=== PATIENT | female | born 1945 | race African-American/Black ===

== ENCOUNTER 2017-08-31 18:07 | Inpatient (IN) ==
[2017-08-31] MEDS ORDERED: SODIUM CHLORIDE 0.9% 1,000 ML IV STA (19:14)
[2017-08-31 20:13] LABS: Basophils # 0.1 10*3/uL (0.0-0.2); Basophils % 0.4 % (0.0-0.8); Eosinophils # 0.1 10*3/uL (0.0-0.87); Hematocrit 30.2 VOL% (35.7-47.0); Hemoglobin 9.1 GM/DL (12.0-16.0); Immature Granulocytes % 0.6 %; Immature Granulocytes Absolute 0.07 #; Lymphocytes % 16.2 % (21.3-54.2); Mean Corpuscular HGB Conc 30.1 GM/DL (32-36); Mean Corpuscular Hemoglobin 25 PG (27-34); Mean Corpuscular Volume 84.1 FL (87-102); Mean Platelet Volume 10.1 FL (9.6-12.0); Monocytes # 1.1 10*3/uL (0.11-0.8); Monocytes % 8.5 % (1.7-12.7); Neutrophils # 9.2 10*3/uL (1.4-7.4); Neutrophils % 73.3 % (38.7-73.9); Platelet Count 323 T/CUMM (130-400); Red Blood Count 3.59 MC/CUMM (3.8-5.5); Red Cell Distribution Width 16.9 % (9.3-17.3); White Blood Count 12.6 T/CUMM (4-12)
[2017-08-31 20:18] LABS: PT Patient Result 10.6 SECS
[2017-08-31 20:21] LABS: Apearance,Urine Slightly Hazy (Clear); Bilirubin,Urine Negative (Negative); Blood, Urine Negative (Negative); Glucose,Urine (UA) Negative (Negative); Hyaline Casts,Urine 14 /LPF (0-3); Ketones,Urine Negative (Negative); Mucus,Urine Occasional /LPF (Occasional); Nitrite,Urine Negative (Negative); Protein,Urine Negative; RBC,Urine <1 /HPF (0-4); Squamous Epithelial Cell,Urine Occasional /HPF (0-10); Urine Color Yellow (Yellow); Urine Specific Gravity 1.013 (1.001-1.035); WBC,Urine 4 /HPF (0-6)
[2017-08-31 20:30] LABS: Ammonia 24 UMOL/L (11-32)
[2017-08-31 20:43] LABS: Alanine Aminotransferase 13 U/L (13-56); Albumin 2.5 G/DL (3.4-5.0); Alkaline Phosphatase 98 U/L (45-117); Aspartate Amino Transferase 11 U/L (0-37); Blood Urea Nitrogen 47 MG/DL (7-18); Calcium 8.2 MG/DL (8.5-10.1); Glucose 96 MG/DL (74-106); Magnesium 2.3 MG/DL (1.8-2.4); Osmolality,Calculated 286.7 MOS/KG (273-304); Potassium 3.3 MMOL/L (3.5-5.1); Sodium 138 MMOL/L (136-145); Total Protein 7.1 G/DL (6.4-8.3); Troponin I Only < 0.015 NG/ML (0.00-0.045)
[2017-08-31] MEDS ORDERED: ACETAMINOPHEN 325 MG TABLET PO PRN (22:22)
[2017-08-31] MEDS ORDERED: ONDANSETRON 4 MG/2 ML VIAL IV PRN (22:22)
[2017-09-01] MEDS ORDERED: SODIUM CHLOR 0.9% KCL 20 MEQ 20 MEQ/1,000 ML BAG IV ONE (00:07)
[2017-09-01] MEDS: ENOXAPARIN 30 MG/0.3 ML SYRINGE SUBCUT SCH ×2 (00:25→23:20)
[2017-09-01] MEDS: POTASSIUM CHLORIDE INJ 20 MEQ in SODIUM CHLORIDE 0.9% 1,000 ML IV SCH (00:25)
[2017-09-01 07:05] LABS: Basophils # 0.1 10*3/uL (0.0-0.2); Basophils % 0.7 % (0.0-0.8); Eosinophils # 0.2 10*3/uL (0.0-0.87); Eosinophils % 1.5 % (0.00-10.9); Hematocrit 26.8 VOL% (35.7-47.0); Hemoglobin 8.2 GM/DL (12.0-16.0); Immature Granulocytes % 0.3 %; Immature Granulocytes Absolute 0.03 #; Lymphocytes # 2.6 10*3/uL (1.4-4.0); Lymphocytes % 24.8 % (21.3-54.2); Mean Corpuscular HGB Conc 30.6 GM/DL (32-36); Mean Corpuscular Hemoglobin 26 PG (27-34); Mean Platelet Volume 10.1 FL (9.6-12.0); Monocytes # 0.9 10*3/uL (0.11-0.8); Monocytes % 8.6 % (1.7-12.7); Neutrophils # 6.6 10*3/uL (1.4-7.4); Neutrophils % 64.1 % (38.7-73.9); Platelet Count 272 T/CUMM (130-400); Red Blood Count 3.19 MC/CUMM (3.8-5.5); Red Cell Distribution Width 16.8 % (9.3-17.3); White Blood Count 10.4 T/CUMM (4-12)
[2017-09-01 07:44] LABS: Albumin 2.2 G/DL (3.4-5.0); Bilirubin,Total 0.4 MG/DL (0.2-1.0); Calcium 7.6 MG/DL (8.5-10.1); Potassium 3.9 MMOL/L (3.5-5.1); Total Protein 5.5 G/DL (6.4-8.3)
[2017-09-01] MEDS ORDERED: LISINOPRIL 10 MG TABLET PO SCH (09:00)
[2017-09-01] MEDS: TRIAMTERENE/HCTZ 37.5-25 MG CAPSULE PO SCH (09:51)
[2017-09-01] MEDS: MULTIVITAMIN (CENTRUM) TABLET PO SCH (09:51)
[2017-09-01] MEDS: clonazePAM 0.5 MG TABLET PO SCH ×2 (09:52→20:59)
[2017-09-01] MEDS: SERTRALINE 100 MG TABLET PO SCH (09:52)
[2017-09-01] MEDS: amLODIPine 5 MG TABLET PO SCH (09:52)
[2017-09-01] MEDS: METOPROLOL TARTRATE 25 MG TABLET PO SCH (09:52)
[2017-09-01] MEDS: PANTOPRAZOLE 40 MG TABLET PO SCH (09:52)
[2017-09-01] MEDS: risperiDONE 3 MG TABLET PO SCH ×2 (10:20→20:59)
[2017-09-01] MEDS: SODIUM CHLOR 0.9% KCL 20 MEQ 20 MEQ/1,000 ML BAG IV SCH ×2 (10:58→20:59)
[2017-09-01] MEDS: DONEPEZIL 10 MG TABLET PO SCH (20:59)
[2017-09-02] MEDS: SODIUM CHLOR 0.9% KCL 20 MEQ 20 MEQ/1,000 ML BAG IV SCH ×5 (00:57→21:07)
[2017-09-02 06:31] LABS: Basophils # 0.1 10*3/uL (0.0-0.2); Basophils % 0.6 % (0.0-0.8); Eosinophils # 0.2 10*3/uL (0.0-0.87); Eosinophils % 2.2 % (0.00-10.9); Hematocrit 26.9 VOL% (35.7-47.0); Hemoglobin 8.3 GM/DL (12.0-16.0); Immature Granulocytes % 0.6 %; Immature Granulocytes Absolute 0.05 #; Lymphocytes # 2.3 10*3/uL (1.4-4.0); Lymphocytes % 25.7 % (21.3-54.2); Mean Corpuscular HGB Conc 30.9 GM/DL (32-36); Mean Corpuscular Hemoglobin 26 PG (27-34); Mean Corpuscular Volume 83.3 FL (87-102); Mean Platelet Volume 10.2 FL (9.6-12.0); Monocytes # 0.7 10*3/uL (0.11-0.8); Monocytes % 8.2 % (1.7-12.7); Neutrophils # 5.5 10*3/uL (1.4-7.4); Neutrophils % 62.7 % (38.7-73.9); Platelet Count 289 T/CUMM (130-400); Red Blood Count 3.23 MC/CUMM (3.8-5.5); Red Cell Distribution Width 16.7 % (9.3-17.3); White Blood Count 8.8 T/CUMM (4-12)
[2017-09-02 06:57] LABS: Calcium 7.8 MG/DL (8.5-10.1); Osmolality,Calculated 287.8 MOS/KG (273-304); Potassium 4.5 MMOL/L (3.5-5.1)
[2017-09-02 07:21] LABS: 25 Hydroxy Vitamin D Total 27.8 NG/ML
[2017-09-02] MEDS: amLODIPine 5 MG TABLET PO SCH (09:32)
[2017-09-02] MEDS: PANTOPRAZOLE 40 MG TABLET PO SCH (09:32)
[2017-09-02] MEDS: TRIAMTERENE/HCTZ 37.5-25 MG CAPSULE PO SCH (09:32)
[2017-09-02] MEDS: clonazePAM 0.5 MG TABLET PO SCH ×2 (09:32→20:56)
[2017-09-02] MEDS: MULTIVITAMIN (CENTRUM) TABLET PO SCH (09:32)
[2017-09-02] MEDS: METOPROLOL TARTRATE 25 MG TABLET PO SCH (09:32)
[2017-09-02] MEDS: SERTRALINE 100 MG TABLET PO SCH (09:33)
[2017-09-02] MEDS: risperiDONE 3 MG TABLET PO SCH ×2 (09:33→20:56)
[2017-09-02] MEDS: DONEPEZIL 10 MG TABLET PO SCH (20:56)
[2017-09-02] MEDS: ENOXAPARIN 40 MG/0.4 ML SYRINGE SUBCUT SCH (20:56)
[2017-09-03] MEDS: SODIUM CHLOR 0.9% KCL 20 MEQ 20 MEQ/1,000 ML BAG IV SCH ×3 (03:31→21:47)
[2017-09-03 03:36] LABS: Basophils # 0.1 10*3/uL (0.0-0.2); Basophils % 0.5 % (0.0-0.8); Eosinophils # 0.3 10*3/uL (0.0-0.87); Eosinophils % 2.8 % (0.00-10.9); Hematocrit 27.3 VOL% (35.7-47.0); Hemoglobin 8.5 GM/DL (12.0-16.0); Immature Granulocytes % 0.5 %; Immature Granulocytes Absolute 0.05 #; Lymphocytes # 2.2 10*3/uL (1.4-4.0); Mean Corpuscular HGB Conc 31.1 GM/DL (32-36); Mean Corpuscular Hemoglobin 26 PG (27-34); Mean Corpuscular Volume 82.5 FL (87-102); Mean Platelet Volume 10.8 FL (9.6-12.0); Monocytes # 0.8 10*3/uL (0.11-0.8); Monocytes % 8.5 % (1.7-12.7); Neutrophils # 5.9 10*3/uL (1.4-7.4); Neutrophils % 63.7 % (38.7-73.9); Platelet Count 318 T/CUMM (130-400); Red Blood Count 3.31 MC/CUMM (3.8-5.5); Red Cell Distribution Width 16.9 % (9.3-17.3); White Blood Count 9.2 T/CUMM (4-12)
[2017-09-03 04:14] LABS: Calcium 7.9 MG/DL (8.5-10.1); Magnesium 1.6 MG/DL (1.8-2.4); Osmolality,Calculated 284.8 MOS/KG (273-304); Potassium 4.9 MMOL/L (3.5-5.1)
[2017-09-03] MEDS: PANTOPRAZOLE 40 MG TABLET PO SCH (09:21)
[2017-09-03] MEDS: MULTIVITAMIN (CENTRUM) TABLET PO SCH (09:21)
[2017-09-03] MEDS: TRIAMTERENE/HCTZ 37.5-25 MG CAPSULE PO SCH (09:21)
[2017-09-03] MEDS: clonazePAM 0.5 MG TABLET PO SCH ×2 (09:21→21:46)
[2017-09-03] MEDS: SERTRALINE 100 MG TABLET PO SCH (09:21)
[2017-09-03] MEDS: risperiDONE 3 MG TABLET PO SCH ×2 (09:21→21:46)
[2017-09-03] MEDS: amLODIPine 5 MG TABLET PO SCH (09:22)
[2017-09-03] MEDS: METOPROLOL TARTRATE 25 MG TABLET PO SCH (09:22)
[2017-09-03] MEDS: DONEPEZIL 10 MG TABLET PO SCH (21:46)
[2017-09-03] MEDS: ENOXAPARIN 40 MG/0.4 ML SYRINGE SUBCUT SCH (21:46)
[2017-09-04] MEDS: SODIUM CHLOR 0.9% KCL 20 MEQ 20 MEQ/1,000 ML BAG IV SCH (08:03)
[2017-09-04] MEDS: clonazePAM 0.5 MG TABLET PO SCH ×2 (08:41→21:20)
[2017-09-04] MEDS: METOPROLOL TARTRATE 25 MG TABLET PO SCH (08:41)
[2017-09-04] MEDS: PANTOPRAZOLE 40 MG TABLET PO SCH (08:41)
[2017-09-04] MEDS: MULTIVITAMIN (CENTRUM) TABLET PO SCH (08:41)
[2017-09-04] MEDS: SERTRALINE 100 MG TABLET PO SCH (08:41)
[2017-09-04] MEDS: risperiDONE 3 MG TABLET PO SCH ×2 (08:41→21:20)
[2017-09-04] MEDS: TRIAMTERENE/HCTZ 37.5-25 MG CAPSULE PO SCH (08:41)
[2017-09-04] MEDS: amLODIPine 5 MG TABLET PO SCH (08:41)
[2017-09-04] MEDS: POTASSIUM CHLORIDE INJ 20 MEQ in SODIUM CHLORIDE 0.9% 1,000 ML IV SCH (08:43)
[2017-09-04] MEDS: MAGNESIUM OXIDE 400 MG TABLET PO SCH ×2 (10:33→21:20)
[2017-09-04] MEDS: SODIUM CHLORIDE 0.45% 1,000 ML IV SCH ×2 (10:34→21:21)
[2017-09-04] MEDS: DONEPEZIL 10 MG TABLET PO SCH (21:20)
[2017-09-04] MEDS: MELATONIN 3 MG TABLET PO PRN (21:20)
[2017-09-04] MEDS: ENOXAPARIN 40 MG/0.4 ML SYRINGE SUBCUT SCH (21:20)
[2017-09-05 04:54] LABS: Calcium 8.4 MG/DL (8.5-10.1); Magnesium 1.4 MG/DL (1.8-2.4); Potassium 4.7 MMOL/L (3.5-5.1)
[2017-09-05] MEDS: amLODIPine 5 MG TABLET PO SCH (08:39)
[2017-09-05] MEDS: risperiDONE 3 MG TABLET PO SCH ×2 (08:39→22:01)
[2017-09-05] MEDS: MAGNESIUM OXIDE 400 MG TABLET PO SCH ×2 (08:39→22:01)
[2017-09-05] MEDS: SERTRALINE 100 MG TABLET PO SCH (08:39)
[2017-09-05] MEDS: METOPROLOL TARTRATE 25 MG TABLET PO SCH (08:39)
[2017-09-05] MEDS: PANTOPRAZOLE 40 MG TABLET PO SCH (08:39)
[2017-09-05] MEDS: clonazePAM 0.5 MG TABLET PO SCH ×2 (08:39→22:01)
[2017-09-05] MEDS: MULTIVITAMIN (CENTRUM) TABLET PO SCH (08:39)
[2017-09-05] MEDS: TRIAMTERENE/HCTZ 37.5-25 MG CAPSULE PO SCH (08:39)
[2017-09-05] MEDS: DONEPEZIL 10 MG TABLET PO SCH (22:01)
[2017-09-05] MEDS: MELATONIN 3 MG TABLET PO PRN (22:01)
[2017-09-05] MEDS: ENOXAPARIN 40 MG/0.4 ML SYRINGE SUBCUT SCH (22:02)
[2017-09-06] MEDS: clonazePAM 0.5 MG TABLET PO SCH ×2 (11:01→22:53)
[2017-09-06] MEDS: amLODIPine 5 MG TABLET PO SCH (11:01)
[2017-09-06] MEDS: TRIAMTERENE/HCTZ 37.5-25 MG CAPSULE PO SCH (11:01)
[2017-09-06] MEDS: METOPROLOL TARTRATE 25 MG TABLET PO SCH (11:01)
[2017-09-06] MEDS: risperiDONE 3 MG TABLET PO SCH ×2 (11:05→22:53)
[2017-09-06] MEDS: MULTIVITAMIN (CENTRUM) TABLET PO SCH (11:06)
[2017-09-06] MEDS: PANTOPRAZOLE 40 MG TABLET PO SCH (11:07)
[2017-09-06] MEDS: SERTRALINE 100 MG TABLET PO SCH (11:08)
[2017-09-06] MEDS: MAGNESIUM OXIDE 400 MG TABLET PO SCH ×2 (11:08→22:53)
[2017-09-06] MEDS: MELATONIN 3 MG TABLET PO PRN (22:53)
[2017-09-06] MEDS: DONEPEZIL 10 MG TABLET PO SCH (22:53)
[2017-09-06] MEDS: ENOXAPARIN 40 MG/0.4 ML SYRINGE SUBCUT SCH (22:54)
[2017-09-07 07:02] LABS: Basophils # 0.1 10*3/uL (0.0-0.2); Basophils % 0.6 % (0.0-0.8); Eosinophils # 0.2 10*3/uL (0.0-0.87); Eosinophils % 2.5 % (0.00-10.9); Hematocrit 28.1 VOL% (35.7-47.0); Hemoglobin 8.6 GM/DL (12.0-16.0); Immature Granulocytes % 0.8 %; Immature Granulocytes Absolute 0.08 #; Lymphocytes # 2.6 10*3/uL (1.4-4.0); Lymphocytes % 26.9 % (21.3-54.2); Mean Corpuscular HGB Conc 30.6 GM/DL (32-36); Mean Corpuscular Hemoglobin 25 PG (27-34); Mean Corpuscular Volume 82.9 FL (87-102); Mean Platelet Volume 9.7 FL (9.6-12.0); Monocytes # 0.9 10*3/uL (0.11-0.8); Monocytes % 8.9 % (1.7-12.7); Neutrophils # 5.8 10*3/uL (1.4-7.4); Neutrophils % 60.3 % (38.7-73.9); Platelet Count 306 T/CUMM (130-400); Red Blood Count 3.39 MC/CUMM (3.8-5.5); Red Cell Distribution Width 17.5 % (9.3-17.3); White Blood Count 9.7 T/CUMM (4-12)
[2017-09-07 07:39] LABS: Calcium 8.7 MG/DL (8.5-10.1); Osmolality,Calculated 281.1 MOS/KG (273-304); Potassium 4.3 MMOL/L (3.5-5.1)
[2017-09-07] MEDS: MULTIVITAMIN (CENTRUM) TABLET PO SCH (10:13)
[2017-09-07] MEDS: clonazePAM 0.5 MG TABLET PO SCH ×2 (10:13→21:21)
[2017-09-07] MEDS: SERTRALINE 100 MG TABLET PO SCH (10:13)
[2017-09-07] MEDS: PANTOPRAZOLE 40 MG TABLET PO SCH (10:13)
[2017-09-07] MEDS: TRIAMTERENE/HCTZ 37.5-25 MG CAPSULE PO SCH (10:13)
[2017-09-07] MEDS: MAGNESIUM OXIDE 400 MG TABLET PO SCH ×2 (10:13→21:22)
[2017-09-07] MEDS: amLODIPine 5 MG TABLET PO SCH (10:13)
[2017-09-07] MEDS: risperiDONE 3 MG TABLET PO SCH ×2 (10:13→21:22)
[2017-09-07] MEDS: METOPROLOL TARTRATE 25 MG TABLET PO SCH (10:13)
[2017-09-07] MEDS: DONEPEZIL 10 MG TABLET PO SCH (21:21)
[2017-09-07] MEDS: MELATONIN 3 MG TABLET PO PRN (21:21)
[2017-09-07] MEDS: ENOXAPARIN 40 MG/0.4 ML SYRINGE SUBCUT SCH (21:26)
[2017-09-08] MEDS: MULTIVITAMIN (CENTRUM) TABLET PO SCH (09:43)
[2017-09-08] MEDS: MAGNESIUM OXIDE 400 MG TABLET PO SCH ×2 (09:43→21:14)
[2017-09-08] MEDS: TRIAMTERENE/HCTZ 37.5-25 MG CAPSULE PO SCH (09:43)
[2017-09-08] MEDS: risperiDONE 3 MG TABLET PO SCH ×2 (09:44→21:14)
[2017-09-08] MEDS: PANTOPRAZOLE 40 MG TABLET PO SCH (09:44)
[2017-09-08] MEDS: SERTRALINE 100 MG TABLET PO SCH (09:44)
[2017-09-08] MEDS: METOPROLOL TARTRATE 25 MG TABLET PO SCH (09:44)
[2017-09-08] MEDS: amLODIPine 5 MG TABLET PO SCH (09:44)
[2017-09-08] MEDS: clonazePAM 0.5 MG TABLET PO SCH ×2 (09:44→21:14)
[2017-09-08] MEDS: MELATONIN 3 MG TABLET PO PRN (21:14)
[2017-09-08] MEDS: DONEPEZIL 10 MG TABLET PO SCH (21:14)
[2017-09-08] MEDS: ENOXAPARIN 40 MG/0.4 ML SYRINGE SUBCUT SCH (21:14)
[2017-09-09 05:25] LABS: Basophils # 0.1 10*3/uL (0.0-0.2); Basophils % 0.6 % (0.0-0.8); Eosinophils # 0.2 10*3/uL (0.0-0.87); Eosinophils % 2.4 % (0.00-10.9); Hematocrit 30.1 VOL% (35.7-47.0); Hemoglobin 9.2 GM/DL (12.0-16.0); Immature Granulocytes % 0.8 %; Immature Granulocytes Absolute 0.08 #; Lymphocytes # 2.9 10*3/uL (1.4-4.0); Lymphocytes % 28.8 % (21.3-54.2); Mean Corpuscular HGB Conc 30.6 GM/DL (32-36); Mean Corpuscular Hemoglobin 25 PG (27-34); Mean Corpuscular Volume 82.9 FL (87-102); Mean Platelet Volume 10.4 FL (9.6-12.0); Monocytes # 1.1 10*3/uL (0.11-0.8); Monocytes % 11.2 % (1.7-12.7); Neutrophils # 5.6 10*3/uL (1.4-7.4); Neutrophils % 56.2 % (38.7-73.9); Platelet Count 326 T/CUMM (130-400); Red Blood Count 3.63 MC/CUMM (3.8-5.5); Red Cell Distribution Width 17.4 % (9.3-17.3); White Blood Count 9.9 T/CUMM (4-12)
[2017-09-09 05:52] LABS: Calcium 8.8 MG/DL (8.5-10.1)
[2017-09-09 05:53] LABS: Osmolality,Calculated 278.4 MOS/KG (273-304); Potassium 4.1 MMOL/L (3.5-5.1)
[2017-09-09] MEDS: SERTRALINE 100 MG TABLET PO SCH (09:28)
[2017-09-09] MEDS: PANTOPRAZOLE 40 MG TABLET PO SCH (09:28)
[2017-09-09] MEDS: METOPROLOL TARTRATE 25 MG TABLET PO SCH (09:28)
[2017-09-09] MEDS: MULTIVITAMIN (CENTRUM) TABLET PO SCH (09:28)
[2017-09-09] MEDS: MAGNESIUM OXIDE 400 MG TABLET PO SCH ×2 (09:28→20:55)
[2017-09-09] MEDS: risperiDONE 3 MG TABLET PO SCH ×2 (09:28→20:55)
[2017-09-09] MEDS: TRIAMTERENE/HCTZ 37.5-25 MG CAPSULE PO SCH (09:28)
[2017-09-09] MEDS: amLODIPine 5 MG TABLET PO SCH (09:29)
[2017-09-09] MEDS: clonazePAM 0.5 MG TABLET PO SCH ×2 (09:29→20:55)
[2017-09-09] MEDS ORDERED: ZINC OXIDE PASTE 113 GM TUBE TOP PRN (14:23)
[2017-09-09] MEDS: ENOXAPARIN 40 MG/0.4 ML SYRINGE SUBCUT SCH (20:55)
[2017-09-09] MEDS: DONEPEZIL 10 MG TABLET PO SCH (20:55)
[2017-09-10] MEDS: METOPROLOL TARTRATE 25 MG TABLET PO SCH (09:55)
[2017-09-10] MEDS: PANTOPRAZOLE 40 MG TABLET PO SCH (09:55)
[2017-09-10] MEDS: MAGNESIUM OXIDE 400 MG TABLET PO SCH (09:55)
[2017-09-10] MEDS: clonazePAM 0.5 MG TABLET PO SCH (09:55)
[2017-09-10] MEDS: TRIAMTERENE/HCTZ 37.5-25 MG CAPSULE PO SCH (09:55)
[2017-09-10] MEDS: amLODIPine 5 MG TABLET PO SCH (09:55)
[2017-09-10] MEDS: MULTIVITAMIN (CENTRUM) TABLET PO SCH (09:55)
[2017-09-10] MEDS: risperiDONE 3 MG TABLET PO SCH (09:56)
[2017-09-10] MEDS: SERTRALINE 100 MG TABLET PO SCH (09:56)
[2017-09-10 17:38] VITALS: BP 113/62
== END 2017-09-10 18:55 | disposition home health service (06) | DRG 684 ==
LOC: EDUNIT# → EDBD → N.ED 18:07 → N.EDINP 22:22 → SUATTDRO 22:23 → N.3E 23:55 → N.2E 09-06 21:10
PROVIDERS: ADMIT Internal Medicine; ATTEND Internal Medicine Cardiovascular Disease

== ENCOUNTER 2017-12-05 17:30 | Inpatient (IN) ==
[2017-12-05] MEDS ORDERED: VANCOMYCIN INJ 1,500 MG in SODIUM CHLORIDE 0.9% 500 ML IV STA (18:08)
[2017-12-05] MEDS ORDERED: PIPERACILLIN/TAZOBACTAM 3,375 MG in SODIUM CHLORIDE 0.9% 100 ML IV STA (18:08)
[2017-12-05] MEDS ORDERED: SODIUM CHLORIDE 0.9% 1,000 ML IV STA ×2 (18:26→19:30)
[2017-12-05] MEDS ORDERED: PROPOFOL 1,000 MG/100 ML BOTTLE IV ONE (18:34)
[2017-12-05] MEDS: PROPOFOL 1,000 MG/100 ML BOTTLE IV SCH (18:41)
[2017-12-05] MEDS ORDERED: ROCURONIUM 100 MG/10 ML VIAL IV ONE (18:56)
[2017-12-05] MEDS ORDERED: ETOMIDATE 20 MG/10 ML VIAL IV ONE (18:56)
[2017-12-05] MEDS ORDERED: VANCOMYCIN 1,000 MG VIAL ONE (19:06)
[2017-12-05 19:10] LABS: Basophils % 0.1 % (0.0-0.8); Immature Granulocytes % 0.6 %; Immature Granulocytes Absolute 0.09 #; Lymphocytes # 0.5 10*3/uL (1.4-4.0); Lymphocytes % 3.4 % (21.3-54.2); Mean Corpuscular HGB Conc 31.6 GM/DL (32-36); Mean Corpuscular Hemoglobin 25 PG (27-34); Mean Corpuscular Volume 80.2 FL (87-102); Mean Platelet Volume 10.8 FL (9.6-12.0); Monocytes # 0.9 10*3/uL (0.11-0.8); Monocytes % 5.7 % (1.7-12.7); Neutrophils # 14.2 10*3/uL (1.4-7.4); Neutrophils % 90.2 % (38.7-73.9); Platelet Count 379 T/CUMM (130-400); Red Blood Count 4.74 MC/CUMM (3.8-5.5); Red Cell Distribution Width 14.6 % (9.3-17.3); White Blood Count 15.7 T/CUMM (4-12)
[2017-12-05 19:16] LABS: ABG Base Excess -0.2 MMOL/L (-2.5-2.5); ABG HCO3 24.3 MMOL/L (20-26); ABG Oxygen Saturation 99.6 % (95-100); ABG PCO2 34.4 MM HG (35-48); ABG PH 7.441 (7.35-7.45); ABG TCO2 20.8 MMOL/L (23-27)
[2017-12-05 19:20] LABS: INR 0.9; PT Patient Result 9.8 SECS; Partial Thromboplastin Time 23.8 SECS (0-40)
[2017-12-05 19:21] LABS: Ammonia 34 UMOL/L (11-32)
[2017-12-05 19:26] LABS: Apearance,Urine CLEAR (Clear); Bilirubin,Urine Negative (Negative); Blood, Urine Small mg/dL (Negative); Glucose,Urine (UA) >=500 mg/dL (Negative); Ketones,Urine Negative (Negative); Mucus,Urine Occasional /LPF (Occasional); Nitrite,Urine Negative (Negative); Protein,Urine 100 MG/DL; RBC,Urine <1 /HPF (0-4); Squamous Epithelial Cell,Urine Occasional /HPF (0-10); Urine Color Straw (Yellow); Urine Specific Gravity 1.014 (1.001-1.035); Urine Urobilinogen < 2.0 EU/DL (0.2-1.0); WBC,Urine <1 /HPF (0-6)
[2017-12-05 19:30] LABS: Lymphocytes 5 % (20-55); Segmented Neutrophils 90 % (50-85); Total Cells Counted 100
[2017-12-05 19:31] LABS: Barbiturates Screen,Urine Negative (Negative); Benzodiazepines Screen,Urine Negative (Negative); Cannabinoid Screen,Urine Negative (Negative); Opiate Screen,Urine Negative (Negative); Phencyclidine Screen,Urine Negative (Negative); Platelet Estimate Adequate
[2017-12-05 19:39] LABS: Alanine Aminotransferase 13 U/L (13-56); Albumin 3.2 G/DL (3.4-5.0); Alkaline Phosphatase 121 U/L (45-117); Aspartate Amino Transferase 31 U/L (0-37); Bilirubin,Total < 0.39 MG/DL (0.2-1.0); Blood Urea Nitrogen 14 MG/DL (7-18); Calcium 8.8 MG/DL (8.5-10.1); Glucose 205 MG/DL (74-106); Osmolality,Calculated 274.2 MOS/KG (273-304); Potassium 3.5 MMOL/L (3.5-5.1); Sodium 134 MMOL/L (136-145); Total Protein 8.2 G/DL (6.4-8.3); Troponin I Only < 0.015 NG/ML (0.00-0.045)
[2017-12-05] MEDS ORDERED: ONDANSETRON 4 MG/2 ML VIAL IV PRN (20:29)
[2017-12-05] MEDS ORDERED: ALBUTEROL 2.5 MG/3 ML NEB RESP TX PRN (20:29)
[2017-12-05] MEDS ORDERED: GLUCAGON 1 MG VIAL IM PRN (20:42)
[2017-12-05] MEDS ORDERED: DEXTROSE 50% 25 GM/50 ML VIAL IV PRN (20:42)
[2017-12-05] MEDS ORDERED: LABETALOL 20 MG/4 ML SYRINGE IV PRN (20:44)
[2017-12-05] MEDS ORDERED: LORazepam 2 MG/1 ML VIAL IV PRN (20:48)
[2017-12-05] MEDS ORDERED: PIPERACILLIN/TAZOBACTAM 3,375 MG VIAL IV ONE (21:04)
[2017-12-05] MEDS ORDERED: SODIUM CHLORIDE 0.9% 100 ML IV ONE (21:06)
[2017-12-05] MEDS: ENOXAPARIN 40 MG/0.4 ML SYRINGE SUBCUT SCH (21:40)
[2017-12-05 21:59] LABS: Lactic Acid 5.4 MMOL/L (0.4-2.0)
[2017-12-05] MEDS: PANTOPRAZOLE 40 MG VIAL IV SCH (22:12)
[2017-12-05] MEDS: SODIUM CHLORIDE 0.9% 1,000 ML IV SCH (23:00)
[2017-12-06 01:16] LABS: Lactic Acid 2.9 MMOL/L (0.4-2.0)
[2017-12-06 03:58] LABS: Allen Test Positive; Pt O2 Delivery Device Ventilator
[2017-12-06 03:59] LABS: ABG Base Excess 1.8 MMOL/L (-2.5-2.5); ABG HCO3 25.6 MMOL/L (20-26); ABG Oxygen Saturation 98.8 % (95-100); ABG PCO2 37.4 MM HG (35-48); ABG PH 7.454 (7.35-7.45); ABG PO2 153.9 MM HG (80-95); ABG TCO2 26.8 MMOL/L (23-27)
[2017-12-06] MEDS: PROPOFOL 1,000 MG/100 ML BOTTLE IV SCH ×2 (04:09→17:45)
[2017-12-06] MEDS: DEXTROSE 5% NACL 0.45% 1,000 ML IV SCH ×2 (04:12→15:19)
[2017-12-06 05:19] LABS: Basophils % 0.2 % (0.0-0.8); Hematocrit 35.6 VOL% (35.7-47.0); Hemoglobin 11.1 GM/DL (12.0-16.0); Immature Granulocytes % 0.7 %; Immature Granulocytes Absolute 0.14 #; Lymphocytes # 1.2 10*3/uL (1.4-4.0); Lymphocytes % 6.1 % (21.3-54.2); Mean Corpuscular HGB Conc 31.2 GM/DL (32-36); Mean Corpuscular Hemoglobin 25 PG (27-34); Mean Corpuscular Volume 81.3 FL (87-102); Mean Platelet Volume 10.7 FL (9.6-12.0); Monocytes # 2.3 10*3/uL (0.11-0.8); Monocytes % 11.9 % (1.7-12.7); Neutrophils # 15.7 10*3/uL (1.4-7.4); Neutrophils % 81.1 % (38.7-73.9); Platelet Count 328 T/CUMM (130-400); Red Blood Count 4.38 MC/CUMM (3.8-5.5); Red Cell Distribution Width 14.9 % (9.3-17.3); White Blood Count 19.3 T/CUMM (4-12)
[2017-12-06 05:43] LABS: Lactic Acid 2.8 MMOL/L (0.4-2.0)
[2017-12-06 06:10] LABS: Alanine Aminotransferase 15 U/L (13-56); Albumin 2.8 G/DL (3.4-5.0); Alkaline Phosphatase 98 U/L (45-117); Aspartate Amino Transferase 35 U/L (0-37); Bilirubin,Total < 0.39 MG/DL (0.2-1.0); Blood Urea Nitrogen 13 MG/DL (7-18); Calcium 8.3 MG/DL (8.5-10.1); Glucose 98 MG/DL (74-106); Osmolality,Calculated 274.7 MOS/KG (273-304); Potassium 3.5 MMOL/L (3.5-5.1); Sodium 138 MMOL/L (136-145); Total Protein 6.6 G/DL (6.4-8.3)
[2017-12-06] MEDS: PIPERACILLIN/TAZOBACTAM 3,375 MG in SODIUM CHLORIDE 0.9% 100 ML IV SCH ×3 (06:15→20:38)
[2017-12-06] MEDS: SODIUM CHLORIDE 0.9% 1,000 ML IV SCH (07:06)
[2017-12-06] MEDS: VANCOMYCIN INJ 1,000 MG in SODIUM CHLORIDE 0.9% 250 ML IV SCH ×2 (08:32→20:19)
[2017-12-06] MEDS ORDERED: SKIN HEALING OINT (AQUAPHOR) 50 GM TUBE TOP SCH (11:30)
[2017-12-06] MEDS: ENOXAPARIN 40 MG/0.4 ML SYRINGE SUBCUT SCH (20:19)
[2017-12-06] MEDS: PANTOPRAZOLE 40 MG VIAL IV SCH (20:19)
[2017-12-07] MEDS: DEXTROSE 5% NACL 0.45% 1,000 ML IV SCH ×4 (01:04→22:45)
[2017-12-07 04:14] LABS: ABG Base Excess -0.3 MMOL/L (-2.5-2.5); ABG HCO3 24.2 MMOL/L (20-26); ABG Oxygen Saturation 99.6 % (95-100); ABG PCO2 35.9 MM HG (35-48); ABG PH 7.429 (7.35-7.45); ABG TCO2 21.7 MMOL/L (23-27)
[2017-12-07] MEDS: PIPERACILLIN/TAZOBACTAM 3,375 MG in SODIUM CHLORIDE 0.9% 100 ML IV SCH ×3 (04:30→20:54)
[2017-12-07 08:06] LABS: Basophils # 0.1 10*3/uL (0.0-0.2); Basophils % 0.2 % (0.0-0.8); Hematocrit 28.3 VOL% (35.7-47.0); Hemoglobin 9.2 GM/DL (12.0-16.0); Immature Granulocytes % 0.6 %; Immature Granulocytes Absolute 0.14 #; Lymphocytes # 1.5 10*3/uL (1.4-4.0); Lymphocytes % 6.6 % (21.3-54.2); Mean Corpuscular HGB Conc 32.5 GM/DL (32-36); Mean Corpuscular Hemoglobin 25 PG (27-34); Mean Corpuscular Volume 78.2 FL (87-102); Mean Platelet Volume 10.7 FL (9.6-12.0); Monocytes # 2.1 10*3/uL (0.11-0.8); Monocytes % 9.4 % (1.7-12.7); Neutrophils # 18.4 10*3/uL (1.4-7.4); Neutrophils % 83.2 % (38.7-73.9); Platelet Count 294 T/CUMM (130-400); Red Blood Count 3.62 MC/CUMM (3.8-5.5); Red Cell Distribution Width 14.8 % (9.3-17.3); White Blood Count 22.1 T/CUMM (4-12)
[2017-12-07 08:30] LABS: Osmolality,Calculated 276.8 MOS/KG (273-304); Potassium 3.1 MMOL/L (3.5-5.1)
[2017-12-07 08:40] LABS: Hypochromasia 1+; Lymphocytes 8 % (20-55); Ovalocytes Slight; Platelet Estimate Adequate; Segmented Neutrophils 85 % (50-85); Total Cells Counted 100
[2017-12-07] MEDS: VANCOMYCIN INJ 1,000 MG in SODIUM CHLORIDE 0.9% 250 ML IV SCH ×2 (09:29→20:15)
[2017-12-07] MEDS ORDERED: MAGNESIUM SULF RIDER 4 GM in PREMIX 1 EACH IV PRN (09:57)
[2017-12-07] MEDS: MAGNESIUM SULF RIDER 2 GM in PREMIX 1 EACH IV PRN (10:27)
[2017-12-07] MEDS: POTASSIUM CHLORIDE 20 MEQ/15 ML UDCUP PER TUBE PRN ×4 (11:23→19:25)
[2017-12-07] MEDS: SERTRALINE 100 MG TABLET PO SCH (11:28)
[2017-12-07] MEDS ORDERED: INSULIN REGULAR 100 UNIT/ML SUBCUT SCH (12:00)
[2017-12-07] MEDS: PROPOFOL 1,000 MG/100 ML BOTTLE IV SCH (18:33)
[2017-12-07] MEDS: ENOXAPARIN 40 MG/0.4 ML SYRINGE SUBCUT SCH (20:14)
[2017-12-07] MEDS: DONEPEZIL 10 MG TABLET PO SCH (20:14)
[2017-12-07] MEDS: clonazePAM 0.5 MG TABLET PO SCH (20:14)
[2017-12-07] MEDS: PANTOPRAZOLE 40 MG VIAL IV SCH (20:15)
[2017-12-08 05:03] LABS: ABG Base Excess 0.1 MMOL/L (-2.5-2.5); ABG HCO3 24.2 MMOL/L (20-26); ABG Oxygen Saturation 99.1 % (95-100); ABG PCO2 36.9 MM HG (35-48); ABG PH 7.435 (7.35-7.45); ABG PO2 179.6 MM HG (80-95); ABG TCO2 25.4 MMOL/L (23-27); Pt O2 Delivery Device Ventilator
[2017-12-08] MEDS: PIPERACILLIN/TAZOBACTAM 3,375 MG in SODIUM CHLORIDE 0.9% 100 ML IV SCH ×3 (05:19→21:35)
[2017-12-08 05:55] LABS: Basophils # 0.1 10*3/uL (0.0-0.2); Basophils % 0.2 % (0.0-0.8); Hematocrit 27.1 VOL% (35.7-47.0); Hemoglobin 8.3 GM/DL (12.0-16.0); Immature Granulocytes % 0.8 %; Immature Granulocytes Absolute 0.16 #; Lymphocytes # 1.3 10*3/uL (1.4-4.0); Lymphocytes % 6.6 % (21.3-54.2); Mean Corpuscular HGB Conc 30.6 GM/DL (32-36); Mean Corpuscular Hemoglobin 25 PG (27-34); Mean Corpuscular Volume 82.6 FL (87-102); Monocytes # 1.5 10*3/uL (0.11-0.8); Monocytes % 7.6 % (1.7-12.7); Neutrophils # 17.2 10*3/uL (1.4-7.4); Neutrophils % 84.8 % (38.7-73.9); Platelet Count 260 T/CUMM (130-400); Red Blood Count 3.28 MC/CUMM (3.8-5.5); Red Cell Distribution Width 14.8 % (9.3-17.3); White Blood Count 20.3 T/CUMM (4-12)
[2017-12-08 06:22] LABS: Giant Platelets Few; Hypochromasia 1+; Lymphocytes 8 % (20-55); Ovalocytes Slight; Platelet Estimate Adequate; Segmented Neutrophils 87 % (50-85); Total Cells Counted 100
[2017-12-08] MEDS: POTASSIUM CHLORIDE 20 MEQ/15 ML UDCUP PER TUBE PRN ×2 (06:24→10:23)
[2017-12-08 06:26] LABS: Prealbumin 13.3 MG/DL (20-40)
[2017-12-08 06:35] LABS: Lactic Acid 1.7 MMOL/L (0.4-2.0)
[2017-12-08 06:40] LABS: Calcium 8.2 MG/DL (8.5-10.1); Osmolality,Calculated 283.3 MOS/KG (273-304); Potassium 3.6 MMOL/L (3.5-5.1)
[2017-12-08] MEDS: SERTRALINE 100 MG TABLET PO SCH (10:22)
[2017-12-08] MEDS: clonazePAM 0.5 MG TABLET PO SCH ×2 (10:22→21:37)
[2017-12-08] MEDS: METOPROLOL TARTRATE 25 MG TABLET PO SCH (10:23)
[2017-12-08] MEDS: DEXTROSE 5% NACL 0.45% 1,000 ML IV SCH ×3 (10:24→21:44)
[2017-12-08] MEDS: VANCOMYCIN INJ 1,000 MG in SODIUM CHLORIDE 0.9% 250 ML IV SCH ×2 (10:25→21:00)
[2017-12-08] MEDS: INSULIN REGULAR 100 UNIT/ML SUBCUT SCH ×2 (11:43→17:24)
[2017-12-08] MEDS: PROPOFOL 1,000 MG/100 ML BOTTLE IV SCH (21:36)
[2017-12-08] MEDS: DONEPEZIL 10 MG TABLET PO SCH (21:37)
[2017-12-08] MEDS: PANTOPRAZOLE 40 MG VIAL IV SCH (21:37)
[2017-12-08] MEDS: ENOXAPARIN 40 MG/0.4 ML SYRINGE SUBCUT SCH (21:37)
[2017-12-09] MEDS: INSULIN REGULAR 100 UNIT/ML SUBCUT SCH ×4 (01:27→18:13)
[2017-12-09 03:50] LABS: ABG Base Excess 0.9 MMOL/L (-2.5-2.5); ABG Oxygen Saturation 98.7 % (95-100); ABG PCO2 37.7 MM HG (35-48); ABG PO2 141.6 MM HG (80-95); ABG TCO2 26.2 MMOL/L (23-27)
[2017-12-09 05:27] LABS: Basophils # 0.1 10*3/uL (0.0-0.2); Basophils % 0.3 % (0.0-0.8); Eosinophils # 0.2 10*3/uL (0.0-0.87); Eosinophils % 1.2 % (0.00-10.9); Hematocrit 25.9 VOL% (35.7-47.0); Hemoglobin 8.3 GM/DL (12.0-16.0); Immature Granulocytes % 0.6 %; Lymphocytes % 11.8 % (21.3-54.2); Mean Corpuscular Hemoglobin 26 PG (27-34); Mean Corpuscular Volume 79.9 FL (87-102); Monocytes # 1.3 10*3/uL (0.11-0.8); Monocytes % 7.8 % (1.7-12.7); Neutrophils # 13.3 10*3/uL (1.4-7.4); Neutrophils % 78.3 % (38.7-73.9); Platelet Count 299 T/CUMM (130-400); Red Blood Count 3.24 MC/CUMM (3.8-5.5); Red Cell Distribution Width 14.7 % (9.3-17.3)
[2017-12-09] MEDS: PIPERACILLIN/TAZOBACTAM 3,375 MG in SODIUM CHLORIDE 0.9% 100 ML IV SCH ×3 (05:44→21:36)
[2017-12-09 06:08] LABS: Calcium 8.3 MG/DL (8.5-10.1); Osmolality,Calculated 284.8 MOS/KG (273-304); Potassium 3.8 MMOL/L (3.5-5.1)
[2017-12-09] MEDS: clonazePAM 0.5 MG TABLET PO SCH ×2 (08:46→21:38)
[2017-12-09] MEDS: METOPROLOL TARTRATE 25 MG TABLET PO SCH (08:46)
[2017-12-09] MEDS: VANCOMYCIN INJ 1,000 MG in SODIUM CHLORIDE 0.9% 250 ML IV SCH ×2 (08:46→21:36)
[2017-12-09] MEDS: SERTRALINE 100 MG TABLET PO SCH (08:46)
[2017-12-09] MEDS: PROPOFOL 1,000 MG/100 ML BOTTLE IV SCH (08:47)
[2017-12-09] MEDS: DEXTROSE 5% NACL 0.45% 1,000 ML IV SCH ×2 (11:07→21:36)
[2017-12-09] MEDS ORDERED: LABETALOL 20 MG/4 ML SYRINGE IV PRN (16:49)
[2017-12-09] MEDS: LISINOPRIL 10 MG TABLET PO SCH (18:46)
[2017-12-09] MEDS: ENOXAPARIN 40 MG/0.4 ML SYRINGE SUBCUT SCH (21:37)
[2017-12-09] MEDS: PANTOPRAZOLE 40 MG VIAL IV SCH (21:37)
[2017-12-09] MEDS: DONEPEZIL 10 MG TABLET PO SCH (21:38)
[2017-12-10] MEDS: INSULIN REGULAR 100 UNIT/ML SUBCUT SCH ×5 (01:36→23:50)
[2017-12-10] MEDS: DEXTROSE 5% NACL 0.45% 1,000 ML IV SCH ×3 (04:27→18:28)
[2017-12-10 04:41] LABS: ABG Base Excess 1.3 MMOL/L (-2.5-2.5); ABG HCO3 25.6 MMOL/L (20-26); ABG Oxygen Saturation 99.5 % (95-100); ABG PCO2 38.5 MM HG (35-48); ABG PH 7.429 (7.35-7.45); ABG TCO2 23.1 MMOL/L (23-27)
[2017-12-10 05:12] LABS: Basophils # 0.1 10*3/uL (0.0-0.2); Basophils % 0.4 % (0.0-0.8); Eosinophils # 0.3 10*3/uL (0.0-0.87); Eosinophils % 1.9 % (0.00-10.9); Hematocrit 24.4 VOL% (35.7-47.0); Hemoglobin 7.9 GM/DL (12.0-16.0); Immature Granulocytes % 0.4 %; Immature Granulocytes Absolute 0.07 #; Lymphocytes # 2.5 10*3/uL (1.4-4.0); Lymphocytes % 15.6 % (21.3-54.2); Mean Corpuscular HGB Conc 32.4 GM/DL (32-36); Mean Corpuscular Hemoglobin 26 PG (27-34); Mean Corpuscular Volume 79.2 FL (87-102); Mean Platelet Volume 10.8 FL (9.6-12.0); Monocytes # 1.3 10*3/uL (0.11-0.8); Neutrophils % 73.7 % (38.7-73.9); Platelet Count 314 T/CUMM (130-400); Red Blood Count 3.08 MC/CUMM (3.8-5.5); Red Cell Distribution Width 14.8 % (9.3-17.3); White Blood Count 16.3 T/CUMM (4-12)
[2017-12-10 05:49] LABS: Calcium 8.3 MG/DL (8.5-10.1); Osmolality,Calculated 276.4 MOS/KG (273-304); Potassium 3.7 MMOL/L (3.5-5.1)
[2017-12-10] MEDS: PIPERACILLIN/TAZOBACTAM 3,375 MG in SODIUM CHLORIDE 0.9% 100 ML IV SCH ×3 (06:17→20:36)
[2017-12-10] MEDS: clonazePAM 0.5 MG TABLET PO SCH ×2 (08:02→20:14)
[2017-12-10] MEDS: POTASSIUM CHLORIDE 20 MEQ/15 ML UDCUP PER TUBE PRN (08:02)
[2017-12-10] MEDS: amLODIPine 5 MG TABLET PO SCH (08:03)
[2017-12-10] MEDS: VANCOMYCIN INJ 1,000 MG in SODIUM CHLORIDE 0.9% 250 ML IV SCH ×2 (08:03→21:23)
[2017-12-10] MEDS: METOPROLOL TARTRATE 25 MG TABLET PO SCH (08:03)
[2017-12-10] MEDS: LISINOPRIL 10 MG TABLET PO SCH (08:03)
[2017-12-10] MEDS: SERTRALINE 100 MG TABLET PO SCH (08:03)
[2017-12-10] MEDS: MAGNESIUM SULF RIDER 2 GM in PREMIX 1 EACH IV PRN (10:03)
[2017-12-10] MEDS: PROPOFOL 1,000 MG/100 ML BOTTLE IV SCH ×2 (17:26→17:27)
[2017-12-10] MEDS: ENOXAPARIN 40 MG/0.4 ML SYRINGE SUBCUT SCH (20:14)
[2017-12-10] MEDS: DONEPEZIL 10 MG TABLET PO SCH (20:14)
[2017-12-10] MEDS: PANTOPRAZOLE 40 MG VIAL IV SCH (20:14)
[2017-12-11 03:56] LABS: Basophils # 0.1 10*3/uL (0.0-0.2); Basophils % 0.5 % (0.0-0.8); Eosinophils # 0.4 10*3/uL (0.0-0.87); Eosinophils % 2.6 % (0.00-10.9); Hematocrit 24.8 VOL% (35.7-47.0); Hemoglobin 7.6 GM/DL (12.0-16.0); Immature Granulocytes % 0.6 %; Immature Granulocytes Absolute 0.08 #; Lymphocytes # 1.8 10*3/uL (1.4-4.0); Mean Corpuscular HGB Conc 30.6 GM/DL (32-36); Mean Corpuscular Hemoglobin 25 PG (27-34); Mean Corpuscular Volume 82.1 FL (87-102); Mean Platelet Volume 11.1 FL (9.6-12.0); Monocytes # 1.3 10*3/uL (0.11-0.8); Monocytes % 9.1 % (1.7-12.7); Neutrophils # 10.4 10*3/uL (1.4-7.4); Neutrophils % 74.2 % (38.7-73.9); Platelet Count 281 T/CUMM (130-400); Red Blood Count 3.02 MC/CUMM (3.8-5.5); Red Cell Distribution Width 14.9 % (9.3-17.3)
[2017-12-11 04:16] LABS: Osmolality,Calculated 279.3 MOS/KG (273-304); Potassium 3.7 MMOL/L (3.5-5.1)
[2017-12-11 04:58] LABS: ABG Base Excess 0.1 MMOL/L (-2.5-2.5); ABG HCO3 24.6 MMOL/L (20-26); ABG Oxygen Saturation 99.1 % (95-100); ABG PCO2 40.2 MM HG (35-48); Pt O2 Delivery Device Ventilator
[2017-12-11] MEDS: DEXTROSE 5% NACL 0.45% 1,000 ML IV SCH ×2 (04:58→19:48)
[2017-12-11] MEDS: PIPERACILLIN/TAZOBACTAM 3,375 MG in SODIUM CHLORIDE 0.9% 100 ML IV SCH ×3 (04:59→20:54)
[2017-12-11] MEDS: INSULIN REGULAR 100 UNIT/ML SUBCUT SCH ×3 (05:33→18:09)
[2017-12-11] MEDS: VANCOMYCIN INJ 1,000 MG in SODIUM CHLORIDE 0.9% 250 ML IV SCH ×2 (08:12→21:17)
[2017-12-11] MEDS: METOPROLOL TARTRATE 25 MG TABLET PO SCH (08:13)
[2017-12-11] MEDS: amLODIPine 5 MG TABLET PO SCH (08:13)
[2017-12-11] MEDS: POTASSIUM CHLORIDE 20 MEQ/15 ML UDCUP PER TUBE PRN (08:13)
[2017-12-11] MEDS: SERTRALINE 100 MG TABLET PO SCH (08:13)
[2017-12-11] MEDS: clonazePAM 0.5 MG TABLET PO SCH ×2 (08:13→20:55)
[2017-12-11] MEDS: LISINOPRIL 10 MG TABLET PO SCH (08:13)
[2017-12-11] MEDS: MAGNESIUM SULF RIDER 2 GM in PREMIX 1 EACH IV PRN (08:14)
[2017-12-11] MEDS: PROPOFOL 1,000 MG/100 ML BOTTLE IV SCH ×2 (19:48→20:53)
[2017-12-11] MEDS: PANTOPRAZOLE 40 MG VIAL IV SCH (20:53)
[2017-12-11] MEDS: ENOXAPARIN 40 MG/0.4 ML SYRINGE SUBCUT SCH (20:54)
[2017-12-11] MEDS: DONEPEZIL 10 MG TABLET PO SCH (20:55)
[2017-12-12] MEDS: INSULIN REGULAR 100 UNIT/ML SUBCUT SCH ×4 (00:04→18:51)
[2017-12-12] MEDS: DEXTROSE 5% NACL 0.45% 1,000 ML IV SCH ×2 (00:04→10:12)
[2017-12-12 04:41] LABS: ABG Base Excess 2.6 MMOL/L (-2.5-2.5); ABG HCO3 26.8 MMOL/L (20-26); ABG Oxygen Saturation 99.5 % (95-100); ABG PCO2 34.8 MM HG (35-48); ABG PH 7.482 (7.35-7.45); ABG TCO2 24.6 MMOL/L (23-27); Allen Test Positive; Pt O2 Delivery Device Ventilator
[2017-12-12] MEDS: PIPERACILLIN/TAZOBACTAM 3,375 MG in SODIUM CHLORIDE 0.9% 100 ML IV SCH ×3 (05:09→21:24)
[2017-12-12] MEDS ORDERED: FUROSEMIDE 40 MG/4 ML VIAL IV ONE (06:30)
[2017-12-12 06:45] LABS: Basophils # 0.1 10*3/uL (0.0-0.2); Basophils % 0.4 % (0.0-0.8); Eosinophils # 0.4 10*3/uL (0.0-0.87); Eosinophils % 2.8 % (0.00-10.9); Hematocrit 24.5 VOL% (35.7-47.0); Hemoglobin 7.5 GM/DL (12.0-16.0); Immature Granulocytes % 0.8 %; Immature Granulocytes Absolute 0.11 #; Lymphocytes # 1.9 10*3/uL (1.4-4.0); Lymphocytes % 13.5 % (21.3-54.2); Mean Corpuscular HGB Conc 30.6 GM/DL (32-36); Mean Corpuscular Hemoglobin 25 PG (27-34); Mean Corpuscular Volume 80.9 FL (87-102); Mean Platelet Volume 10.7 FL (9.6-12.0); Monocytes # 1.1 10*3/uL (0.11-0.8); Monocytes % 7.9 % (1.7-12.7); Neutrophils # 10.6 10*3/uL (1.4-7.4); Neutrophils % 74.6 % (38.7-73.9); Platelet Count 309 T/CUMM (130-400); Red Blood Count 3.03 MC/CUMM (3.8-5.5); Red Cell Distribution Width 14.6 % (9.3-17.3); White Blood Count 14.2 T/CUMM (4-12)
[2017-12-12 07:07] LABS: Calcium 8.2 MG/DL (8.5-10.1); Osmolality,Calculated 280.1 MOS/KG (273-304); Potassium 3.4 MMOL/L (3.5-5.1)
[2017-12-12] MEDS: MAGNESIUM SULF RIDER 2 GM in PREMIX 1 EACH IV PRN (07:49)
[2017-12-12] MEDS: POTASSIUM CHLORIDE 20 MEQ/15 ML UDCUP PER TUBE PRN (08:05)
[2017-12-12] MEDS: METOPROLOL TARTRATE 25 MG TABLET PO SCH (08:05)
[2017-12-12] MEDS: LISINOPRIL 10 MG TABLET PO SCH (08:05)
[2017-12-12] MEDS: amLODIPine 5 MG TABLET PO SCH (08:05)
[2017-12-12] MEDS: clonazePAM 0.5 MG TABLET PO SCH ×2 (08:05→21:23)
[2017-12-12] MEDS: SERTRALINE 100 MG TABLET PO SCH (08:06)
[2017-12-12] MEDS: VANCOMYCIN INJ 1,000 MG in SODIUM CHLORIDE 0.9% 250 ML IV SCH (08:21)
[2017-12-12] MEDS: PROPOFOL 1,000 MG/100 ML BOTTLE IV SCH ×2 (12:55→23:25)
[2017-12-12] MEDS: DONEPEZIL 10 MG TABLET PO SCH (21:23)
[2017-12-12] MEDS: PANTOPRAZOLE 40 MG VIAL IV SCH (21:23)
[2017-12-12] MEDS: ENOXAPARIN 40 MG/0.4 ML SYRINGE SUBCUT SCH (21:24)
[2017-12-13] MEDS: INSULIN REGULAR 100 UNIT/ML SUBCUT SCH ×4 (00:17→17:37)
[2017-12-13 04:01] LABS: ABG Base Excess 8.8 MMOL/L (-2.5-2.5); ABG HCO3 32.6 MMOL/L (20-26); ABG PH 7.502 (7.35-7.45); ABG TCO2 29.5 MMOL/L (23-27); Allen Test Positive; Pt O2 Delivery Device Ventilator
[2017-12-13 05:42] LABS: Basophils # 0.1 10*3/uL (0.0-0.2); Basophils % 0.6 % (0.0-0.8); Eosinophils # 0.4 10*3/uL (0.0-0.87); Eosinophils % 2.4 % (0.00-10.9); Hematocrit 27.6 VOL% (35.7-47.0); Hemoglobin 8.6 GM/DL (12.0-16.0); Immature Granulocytes % 0.8 %; Immature Granulocytes Absolute 0.13 #; Lymphocytes # 2.8 10*3/uL (1.4-4.0); Lymphocytes % 16.4 % (21.3-54.2); Mean Corpuscular HGB Conc 31.2 GM/DL (32-36); Mean Corpuscular Hemoglobin 25 PG (27-34); Mean Corpuscular Volume 80.9 FL (87-102); Mean Platelet Volume 10.1 FL (9.6-12.0); Monocytes # 1.3 10*3/uL (0.11-0.8); Monocytes % 7.4 % (1.7-12.7); Neutrophils # 12.5 10*3/uL (1.4-7.4); Neutrophils % 72.4 % (38.7-73.9); Platelet Count 335 T/CUMM (130-400); Red Blood Count 3.41 MC/CUMM (3.8-5.5); Red Cell Distribution Width 14.6 % (9.3-17.3); White Blood Count 17.3 T/CUMM (4-12)
[2017-12-13] MEDS: PIPERACILLIN/TAZOBACTAM 3,375 MG in SODIUM CHLORIDE 0.9% 100 ML IV SCH ×3 (05:56→21:40)
[2017-12-13 06:16] LABS: Prealbumin 11.3 MG/DL (20-40)
[2017-12-13 06:17] LABS: Calcium 8.5 MG/DL (8.5-10.1); Osmolality,Calculated 279.3 MOS/KG (273-304); Potassium 3.4 MMOL/L (3.5-5.1)
[2017-12-13] MEDS: POTASSIUM CHLORIDE 20 MEQ/15 ML UDCUP PER TUBE PRN ×3 (06:34→10:40)
[2017-12-13] MEDS: METOPROLOL TARTRATE 25 MG TABLET PO SCH (08:45)
[2017-12-13] MEDS: amLODIPine 5 MG TABLET PO SCH (08:45)
[2017-12-13] MEDS: LISINOPRIL 10 MG TABLET PO SCH (08:45)
[2017-12-13] MEDS: clonazePAM 0.5 MG TABLET PO SCH ×2 (08:45→21:40)
[2017-12-13] MEDS: VANCOMYCIN INJ 1,000 MG in SODIUM CHLORIDE 0.9% 250 ML IV SCH (09:28)
[2017-12-13] MEDS: SERTRALINE 100 MG TABLET PO SCH (10:00)
[2017-12-13] MEDS: ENOXAPARIN 40 MG/0.4 ML SYRINGE SUBCUT SCH (21:40)
[2017-12-13] MEDS: PANTOPRAZOLE 40 MG VIAL IV SCH (21:40)
[2017-12-13] MEDS: DONEPEZIL 10 MG TABLET PO SCH (21:40)
[2017-12-14] MEDS: PROPOFOL 1,000 MG/100 ML BOTTLE IV SCH ×2 (01:30→04:42)
[2017-12-14] MEDS: INSULIN REGULAR 100 UNIT/ML SUBCUT SCH ×4 (01:31→18:00)
[2017-12-14 03:50] LABS: ABG HCO3 31.8 MMOL/L (20-26); ABG Oxygen Saturation 99.3 % (95-100); ABG PCO2 36.7 MM HG (35-48); ABG PH 7.536 (7.35-7.45); ABG TCO2 28.1 MMOL/L (23-27); Allen Test Positive; Pt O2 Delivery Device Ventilator
[2017-12-14] MEDS: DEXTROSE 5% NACL 0.45% 1,000 ML IV SCH ×2 (04:41→10:00)
[2017-12-14] MEDS: PIPERACILLIN/TAZOBACTAM 3,375 MG in SODIUM CHLORIDE 0.9% 100 ML IV SCH ×3 (05:40→21:11)
[2017-12-14 05:48] LABS: Basophils # 0.1 10*3/uL (0.0-0.2); Basophils % 0.4 % (0.0-0.8); Eosinophils # 0.3 10*3/uL (0.0-0.87); Hematocrit 27.2 VOL% (35.7-47.0); Hemoglobin 8.6 GM/DL (12.0-16.0); Immature Granulocytes Absolute 0.17 #; Lymphocytes # 2.9 10*3/uL (1.4-4.0); Lymphocytes % 17.1 % (21.3-54.2); Mean Corpuscular HGB Conc 31.6 GM/DL (32-36); Mean Corpuscular Hemoglobin 25 PG (27-34); Mean Corpuscular Volume 78.8 FL (87-102); Mean Platelet Volume 9.8 FL (9.6-12.0); Monocytes # 1.3 10*3/uL (0.11-0.8); Monocytes % 7.7 % (1.7-12.7); Neutrophils # 12.2 10*3/uL (1.4-7.4); Neutrophils % 71.8 % (38.7-73.9); Platelet Count 395 T/CUMM (130-400); Red Blood Count 3.45 MC/CUMM (3.8-5.5); Red Cell Distribution Width 14.8 % (9.3-17.3)
[2017-12-14 06:14] LABS: Calcium 8.6 MG/DL (8.5-10.1); Osmolality,Calculated 276.4 MOS/KG (273-304); Potassium 3.7 MMOL/L (3.5-5.1)
[2017-12-14] MEDS: POTASSIUM CHLORIDE 20 MEQ/15 ML UDCUP PER TUBE PRN (06:21)
[2017-12-14] MEDS: clonazePAM 0.5 MG TABLET PO SCH ×2 (08:15→21:12)
[2017-12-14] MEDS: METOPROLOL TARTRATE 25 MG TABLET PO SCH (08:15)
[2017-12-14] MEDS: amLODIPine 5 MG TABLET PO SCH (08:15)
[2017-12-14] MEDS: LISINOPRIL 10 MG TABLET PO SCH (08:15)
[2017-12-14] MEDS: SERTRALINE 100 MG TABLET PO SCH (08:15)
[2017-12-14] MEDS: VANCOMYCIN INJ 1,000 MG in SODIUM CHLORIDE 0.9% 250 ML IV SCH (09:45)
[2017-12-14 10:45] LABS: % Iron Saturation 13.3 % (18-50)
[2017-12-14 11:23] LABS: Folate 5.7 NG/ML (5.4-24.0)
[2017-12-14] MEDS: PANTOPRAZOLE 40 MG VIAL IV SCH (21:12)
[2017-12-14] MEDS: ENOXAPARIN 40 MG/0.4 ML SYRINGE SUBCUT SCH (21:12)
[2017-12-14] MEDS: DONEPEZIL 10 MG TABLET PO SCH (21:12)
[2017-12-15] MEDS: PROPOFOL 1,000 MG/100 ML BOTTLE IV SCH ×3 (00:02→18:04)
[2017-12-15] MEDS: INSULIN REGULAR 100 UNIT/ML SUBCUT SCH ×4 (01:10→18:05)
[2017-12-15 03:30] LABS: ABG Base Excess 8.6 MMOL/L (-2.5-2.5); ABG HCO3 31.4 MMOL/L (20-26); ABG Oxygen Saturation 98.5 % (95-100); ABG PCO2 36.1 MM HG (35-48); ABG PH 7.557 (7.35-7.45); ABG PO2 125.8 MM HG (80-95); ABG TCO2 32.5 MMOL/L (23-27); Allen Test Positive; Pt O2 Delivery Device Ventilator
[2017-12-15] MEDS: PIPERACILLIN/TAZOBACTAM 3,375 MG in SODIUM CHLORIDE 0.9% 100 ML IV SCH ×2 (05:35→17:27)
[2017-12-15 06:02] LABS: Basophils # 0.1 10*3/uL (0.0-0.2); Basophils % 0.4 % (0.0-0.8); Eosinophils # 0.4 10*3/uL (0.0-0.87); Eosinophils % 2.3 % (0.00-10.9); Hematocrit 27.5 VOL% (35.7-47.0); Hemoglobin 8.7 GM/DL (12.0-16.0); Immature Granulocytes Absolute 0.18 #; Lymphocytes # 3.1 10*3/uL (1.4-4.0); Lymphocytes % 16.2 % (21.3-54.2); Mean Corpuscular HGB Conc 31.6 GM/DL (32-36); Mean Corpuscular Hemoglobin 26 PG (27-34); Mean Corpuscular Volume 80.6 FL (87-102); Mean Platelet Volume 9.9 FL (9.6-12.0); Monocytes # 1.5 10*3/uL (0.11-0.8); Monocytes % 7.9 % (1.7-12.7); Neutrophils # 13.6 10*3/uL (1.4-7.4); Neutrophils % 72.2 % (38.7-73.9); Platelet Count 401 T/CUMM (130-400); Red Blood Count 3.41 MC/CUMM (3.8-5.5); White Blood Count 18.9 T/CUMM (4-12)
[2017-12-15 06:47] LABS: Calcium 8.5 MG/DL (8.5-10.1); Osmolality,Calculated 275.5 MOS/KG (273-304); Potassium 3.8 MMOL/L (3.5-5.1)
[2017-12-15] MEDS: METOPROLOL TARTRATE 25 MG TABLET PO SCH (08:21)
[2017-12-15] MEDS: clonazePAM 0.5 MG TABLET PO SCH ×2 (08:21→20:13)
[2017-12-15] MEDS: amLODIPine 5 MG TABLET PO SCH (08:21)
[2017-12-15] MEDS: LISINOPRIL 10 MG TABLET PO SCH (08:21)
[2017-12-15] MEDS: POTASSIUM CHLORIDE 20 MEQ/15 ML UDCUP PER TUBE PRN (08:21)
[2017-12-15] MEDS: SERTRALINE 100 MG TABLET PO SCH (08:21)
[2017-12-15] MEDS: VANCOMYCIN INJ 1,000 MG in SODIUM CHLORIDE 0.9% 250 ML IV SCH (10:24)
[2017-12-15] MEDS: DEXTROSE 5% NACL 0.45% 1,000 ML IV SCH (11:33)
[2017-12-15] MEDS: PANTOPRAZOLE 40 MG VIAL IV SCH (20:12)
[2017-12-15] MEDS: ENOXAPARIN 40 MG/0.4 ML SYRINGE SUBCUT SCH (20:13)
[2017-12-15] MEDS: DONEPEZIL 10 MG TABLET PO SCH (20:13)
[2017-12-16] MEDS: INSULIN REGULAR 100 UNIT/ML SUBCUT SCH ×4 (00:12→18:22)
[2017-12-16] MEDS: PIPERACILLIN/TAZOBACTAM 3,375 MG in SODIUM CHLORIDE 0.9% 100 ML IV SCH ×3 (01:26→17:15)
[2017-12-16 05:03] LABS: ABG Base Excess 6.2 MMOL/L (-2.5-2.5); ABG Oxygen Saturation 98.4 % (95-100); ABG PCO2 40.1 MM HG (35-48); ABG PH 7.492 (7.35-7.45); ABG TCO2 31.2 MMOL/L (23-27); Allen Test Positive; Pt O2 Delivery Device Ventilator
[2017-12-16 06:07] LABS: Basophils # 0.1 10*3/uL (0.0-0.2); Basophils % 0.5 % (0.0-0.8); Eosinophils # 0.3 10*3/uL (0.0-0.87); Eosinophils % 1.5 % (0.00-10.9); Hematocrit 27.6 VOL% (35.7-47.0); Hemoglobin 8.5 GM/DL (12.0-16.0); Immature Granulocytes % 1.2 %; Immature Granulocytes Absolute 0.25 #; Lymphocytes # 2.9 10*3/uL (1.4-4.0); Lymphocytes % 13.9 % (21.3-54.2); Mean Corpuscular HGB Conc 30.8 GM/DL (32-36); Mean Corpuscular Hemoglobin 25 PG (27-34); Mean Corpuscular Volume 81.2 FL (87-102); Mean Platelet Volume 10.3 FL (9.6-12.0); Monocytes # 1.4 10*3/uL (0.11-0.8); Monocytes % 6.9 % (1.7-12.7); Neutrophils # 15.6 10*3/uL (1.4-7.4); Platelet Count 381 T/CUMM (130-400); Red Cell Distribution Width 15.1 % (9.3-17.3); White Blood Count 20.6 T/CUMM (4-12)
[2017-12-16 06:28] LABS: Calcium 8.4 MG/DL (8.5-10.1); Osmolality,Calculated 279.4 MOS/KG (273-304); Potassium 3.7 MMOL/L (3.5-5.1)
[2017-12-16 06:35] LABS: Eosinophils 2 % (0-10); Lymphocytes 16 % (20-55); Platelet Estimate Normal; Segmented Neutrophils 78 % (50-85); Total Cells Counted 100
[2017-12-16] MEDS: amLODIPine 5 MG TABLET PO SCH (08:07)
[2017-12-16] MEDS: clonazePAM 0.5 MG TABLET PO SCH ×2 (08:07→21:05)
[2017-12-16] MEDS: METOPROLOL TARTRATE 25 MG TABLET PO SCH (08:07)
[2017-12-16] MEDS: POTASSIUM CHLORIDE 20 MEQ/15 ML UDCUP PER TUBE PRN (08:08)
[2017-12-16] MEDS: SERTRALINE 100 MG TABLET PO SCH (08:08)
[2017-12-16] MEDS: LISINOPRIL 10 MG TABLET PO SCH (08:08)
[2017-12-16] MEDS: VANCOMYCIN INJ 1,000 MG in SODIUM CHLORIDE 0.9% 250 ML IV SCH (11:00)
[2017-12-16] MEDS: methylPREDNISolone SOD SUC 40 MG/1 ML VIAL IV SCH ×2 (11:00→22:23)
[2017-12-16] MEDS: DEXTROSE 5% NACL 0.45% 1,000 ML IV SCH (19:06)
[2017-12-16] MEDS: PROPOFOL 1,000 MG/100 ML BOTTLE IV SCH (19:08)
[2017-12-16] MEDS: DONEPEZIL 10 MG TABLET PO SCH (21:05)
[2017-12-16] MEDS: ENOXAPARIN 40 MG/0.4 ML SYRINGE SUBCUT SCH (21:05)
[2017-12-16] MEDS: PANTOPRAZOLE 40 MG VIAL IV SCH (21:06)
[2017-12-17] MEDS: INSULIN REGULAR 100 UNIT/ML SUBCUT SCH ×4 (00:33→17:50)
[2017-12-17] MEDS: PIPERACILLIN/TAZOBACTAM 3,375 MG in SODIUM CHLORIDE 0.9% 100 ML IV SCH ×3 (00:51→17:50)
[2017-12-17] MEDS: VANCOMYCIN INJ 1,000 MG in SODIUM CHLORIDE 0.9% 250 ML IV SCH ×2 (04:44→22:30)
[2017-12-17 05:02] LABS: Basophils % 0.2 % (0.0-0.8); Hematocrit 26.3 VOL% (35.7-47.0); Hemoglobin 8.1 GM/DL (12.0-16.0); Immature Granulocytes % 1.1 %; Immature Granulocytes Absolute 0.24 #; Lymphocytes # 1.3 10*3/uL (1.4-4.0); Lymphocytes % 5.9 % (21.3-54.2); Mean Corpuscular HGB Conc 30.8 GM/DL (32-36); Mean Corpuscular Hemoglobin 25 PG (27-34); Mean Corpuscular Volume 81.7 FL (87-102); Mean Platelet Volume 10.1 FL (9.6-12.0); Monocytes # 0.3 10*3/uL (0.11-0.8); Monocytes % 1.3 % (1.7-12.7); Neutrophils # 20.2 10*3/uL (1.4-7.4); Neutrophils % 91.5 % (38.7-73.9); Platelet Count 393 T/CUMM (130-400); Red Blood Count 3.22 MC/CUMM (3.8-5.5); Red Cell Distribution Width 14.8 % (9.3-17.3)
[2017-12-17 05:22] LABS: Calcium 8.4 MG/DL (8.5-10.1); Osmolality,Calculated 279.7 MOS/KG (273-304); Potassium 4.3 MMOL/L (3.5-5.1)
[2017-12-17 05:30] LABS: Hypochromasia 1+; Lymphocytes 4 % (20-55); Segmented Neutrophils 92 % (50-85); Total Cells Counted 100
[2017-12-17 05:31] LABS: Giant Platelets Few; Microcytosis Slight; Ovalocytes Slight
[2017-12-17 07:24] LABS: ABG Base Excess 4.2 MMOL/L (-2.5-2.5); ABG HCO3 29.3 MMOL/L (20-26); ABG Oxygen Saturation 98.7 % (95-100); ABG PCO2 45.8 MM HG (35-48); ABG PH 7.424 (7.35-7.45); ABG PO2 134.5 MM HG (80-95); ABG TCO2 30.7 MMOL/L (23-27); Allen Test Positive; Pt O2 Delivery Device Other
[2017-12-17] MEDS: clonazePAM 0.5 MG TABLET PO SCH ×2 (10:00→21:08)
[2017-12-17] MEDS: LISINOPRIL 10 MG TABLET PO SCH (10:01)
[2017-12-17] MEDS: METOPROLOL TARTRATE 25 MG TABLET PO SCH (10:01)
[2017-12-17] MEDS: amLODIPine 5 MG TABLET PO SCH (10:01)
[2017-12-17] MEDS: SERTRALINE 100 MG TABLET PO SCH (10:02)
[2017-12-17] MEDS: methylPREDNISolone SOD SUC 40 MG/1 ML VIAL IV SCH ×2 (10:02→22:27)
[2017-12-17] MEDS: DEXTROSE 5% NACL 0.45% 1,000 ML IV SCH (14:35)
[2017-12-17] MEDS: PROPOFOL 1,000 MG/100 ML BOTTLE IV SCH (17:39)
[2017-12-17] MEDS: DONEPEZIL 10 MG TABLET PO SCH (21:08)
[2017-12-17] MEDS: PANTOPRAZOLE 40 MG VIAL IV SCH (21:08)
[2017-12-17] MEDS: ENOXAPARIN 40 MG/0.4 ML SYRINGE SUBCUT SCH (21:08)
[2017-12-18] MEDS: INSULIN REGULAR 100 UNIT/ML SUBCUT SCH ×4 (00:02→18:18)
[2017-12-18] MEDS: PIPERACILLIN/TAZOBACTAM 3,375 MG in SODIUM CHLORIDE 0.9% 100 ML IV SCH ×3 (00:38→17:16)
[2017-12-18 03:30] LABS: ABG Base Excess 3.8 MMOL/L (-2.5-2.5); ABG HCO3 28.8 MMOL/L (20-26); ABG Oxygen Saturation 98.9 % (95-100); ABG PCO2 45.4 MM HG (35-48); ABG PO2 156.6 MM HG (80-95); ABG TCO2 30.2 MMOL/L (23-27)
[2017-12-18 04:34] LABS: Basophils % 0.1 % (0.0-0.8); Hematocrit 27.5 VOL% (35.7-47.0); Hemoglobin 8.4 GM/DL (12.0-16.0); Immature Granulocytes % 1.6 %; Immature Granulocytes Absolute 0.35 #; Lymphocytes # 1.8 10*3/uL (1.4-4.0); Lymphocytes % 7.9 % (21.3-54.2); Mean Corpuscular HGB Conc 30.5 GM/DL (32-36); Mean Corpuscular Hemoglobin 25 PG (27-34); Mean Corpuscular Volume 82.3 FL (87-102); Mean Platelet Volume 10.3 FL (9.6-12.0); Monocytes # 0.5 10*3/uL (0.11-0.8); Monocytes % 2.3 % (1.7-12.7); Neutrophils # 19.6 10*3/uL (1.4-7.4); Neutrophils % 88.1 % (38.7-73.9); Platelet Count 443 T/CUMM (130-400); Red Blood Count 3.34 MC/CUMM (3.8-5.5); Red Cell Distribution Width 14.9 % (9.3-17.3); White Blood Count 22.2 T/CUMM (4-12)
[2017-12-18 05:01] LABS: Calcium 8.7 MG/DL (8.5-10.1); Osmolality,Calculated 283.4 MOS/KG (273-304); Potassium 4.4 MMOL/L (3.5-5.1)
[2017-12-18] MEDS: SERTRALINE 100 MG TABLET PO SCH (09:22)
[2017-12-18] MEDS: LISINOPRIL 10 MG TABLET PO SCH (09:22)
[2017-12-18] MEDS: amLODIPine 5 MG TABLET PO SCH (09:22)
[2017-12-18] MEDS: METOPROLOL TARTRATE 25 MG TABLET PO SCH (09:22)
[2017-12-18] MEDS: clonazePAM 0.5 MG TABLET PO SCH ×2 (09:23→21:39)
[2017-12-18] MEDS: methylPREDNISolone SOD SUC 40 MG/1 ML VIAL IV SCH ×2 (09:31→22:38)
[2017-12-18] MEDS: DEXTROSE 5% NACL 0.45% 1,000 ML IV SCH (13:34)
[2017-12-18] MEDS: CIPROFLOXACIN INJ 200 MG in PREMIX 1 EACH IV SCH (17:09)
[2017-12-18] MEDS: VANCOMYCIN INJ 1,000 MG in SODIUM CHLORIDE 0.9% 250 ML IV SCH (17:09)
[2017-12-18] MEDS: PROPOFOL 1,000 MG/100 ML BOTTLE IV SCH (18:18)
[2017-12-18] MEDS: DONEPEZIL 10 MG TABLET PO SCH (21:39)
[2017-12-18] MEDS: ENOXAPARIN 40 MG/0.4 ML SYRINGE SUBCUT SCH (21:39)
[2017-12-18] MEDS: PANTOPRAZOLE 40 MG VIAL IV SCH (21:40)
[2017-12-19] MEDS: INSULIN REGULAR 100 UNIT/ML SUBCUT SCH ×5 (00:02→23:40)
[2017-12-19] MEDS: PIPERACILLIN/TAZOBACTAM 3,375 MG in SODIUM CHLORIDE 0.9% 100 ML IV SCH (00:54)
[2017-12-19] MEDS: CIPROFLOXACIN INJ 200 MG in PREMIX 1 EACH IV SCH ×2 (03:05→15:35)
[2017-12-19 03:48] LABS: Allen Test Positive; Pt O2 Delivery Device Ventilator
[2017-12-19 03:50] LABS: ABG Base Excess 0.5 MMOL/L (-2.5-2.5); ABG HCO3 23.6 MMOL/L (20-26); ABG Oxygen Saturation 98.7 % (95-100); ABG PO2 126.7 MM HG (80-95); ABG TCO2 24.7 MMOL/L (23-27)
[2017-12-19 05:42] LABS: Basophils % 0.2 % (0.0-0.8); Hematocrit 29.7 VOL% (35.7-47.0); Hemoglobin 9.1 GM/DL (12.0-16.0); Immature Granulocytes % 1.9 %; Immature Granulocytes Absolute 0.34 #; Lymphocytes # 1.8 10*3/uL (1.4-4.0); Lymphocytes % 9.7 % (21.3-54.2); Mean Corpuscular HGB Conc 30.6 GM/DL (32-36); Mean Corpuscular Hemoglobin 25 PG (27-34); Monocytes # 0.6 10*3/uL (0.11-0.8); Monocytes % 3.1 % (1.7-12.7); Neutrophils # 15.3 10*3/uL (1.4-7.4); Neutrophils % 85.1 % (38.7-73.9); Platelet Count 523 T/CUMM (130-400); Red Blood Count 3.62 MC/CUMM (3.8-5.5); Red Cell Distribution Width 14.9 % (9.3-17.3)
[2017-12-19 06:12] LABS: Albumin 2.4 G/DL (3.4-5.0); Bilirubin,Total 0.5 MG/DL (0.2-1.0); Calcium 8.8 MG/DL (8.5-10.1); Osmolality,Calculated 279.8 MOS/KG (273-304); Total Protein 7.4 G/DL (6.4-8.3)
[2017-12-19] MEDS: LISINOPRIL 10 MG TABLET PO SCH (08:23)
[2017-12-19] MEDS: SERTRALINE 100 MG TABLET PO SCH (08:24)
[2017-12-19] MEDS: clonazePAM 0.5 MG TABLET PO SCH ×2 (08:24→20:24)
[2017-12-19] MEDS: METOPROLOL TARTRATE 25 MG TABLET PO SCH (08:25)
[2017-12-19] MEDS: amLODIPine 5 MG TABLET PO SCH (08:25)
[2017-12-19] MEDS: methylPREDNISolone SOD SUC 40 MG/1 ML VIAL IV SCH ×2 (09:37→21:53)
[2017-12-19] MEDS: DEXTROSE 5% NACL 0.45% 1,000 ML IV SCH (11:11)
[2017-12-19] MEDS: VANCOMYCIN INJ 1,000 MG in SODIUM CHLORIDE 0.9% 250 ML IV SCH (11:13)
[2017-12-19] MEDS: ENOXAPARIN 40 MG/0.4 ML SYRINGE SUBCUT SCH (20:23)
[2017-12-19] MEDS: PANTOPRAZOLE 40 MG VIAL IV SCH (20:23)
[2017-12-19] MEDS: DONEPEZIL 10 MG TABLET PO SCH (20:24)
[2017-12-20 03:15] LABS: ABG Base Excess 2.9 MMOL/L (-2.5-2.5); ABG Oxygen Saturation 99.2 % (95-100); ABG PCO2 41.1 MM HG (35-48); ABG PH 7.432 (7.35-7.45); ABG TCO2 25.1 MMOL/L (23-27); Allen Test Positive; Pt O2 Delivery Device Ventilator
[2017-12-20 03:23] LABS: Basophils % 0.2 % (0.0-0.8); Hematocrit 28.4 VOL% (35.7-47.0); Hemoglobin 8.8 GM/DL (12.0-16.0); Immature Granulocytes % 1.2 %; Lymphocytes # 1.6 10*3/uL (1.4-4.0); Lymphocytes % 9.6 % (21.3-54.2); Mean Corpuscular Hemoglobin 25 PG (27-34); Mean Corpuscular Volume 81.4 FL (87-102); Mean Platelet Volume 10.2 FL (9.6-12.0); Monocytes # 0.7 10*3/uL (0.11-0.8); Monocytes % 4.5 % (1.7-12.7); Neutrophils % 84.5 % (38.7-73.9); Platelet Count 524 T/CUMM (130-400); Red Blood Count 3.49 MC/CUMM (3.8-5.5); Red Cell Distribution Width 15.3 % (9.3-17.3); White Blood Count 16.6 T/CUMM (4-12)
[2017-12-20] MEDS: CIPROFLOXACIN INJ 200 MG in PREMIX 1 EACH IV SCH (03:38)
[2017-12-20 03:50] LABS: Calcium 8.8 MG/DL (8.5-10.1); Osmolality,Calculated 280.7 MOS/KG (273-304); Potassium 4.1 MMOL/L (3.5-5.1)
[2017-12-20 04:30] LABS: Prealbumin 28.7 MG/DL (20-40)
[2017-12-20] MEDS: VANCOMYCIN INJ 1,000 MG in SODIUM CHLORIDE 0.9% 250 ML IV SCH (04:59)
[2017-12-20] MEDS: INSULIN REGULAR 100 UNIT/ML SUBCUT SCH ×2 (06:25→11:58)
[2017-12-20] MEDS: SERTRALINE 100 MG TABLET PO SCH (08:53)
[2017-12-20] MEDS: amLODIPine 5 MG TABLET PO SCH (08:53)
[2017-12-20] MEDS: METOPROLOL TARTRATE 25 MG TABLET PO SCH (08:53)
[2017-12-20] MEDS: clonazePAM 0.5 MG TABLET PO SCH (08:53)
[2017-12-20] MEDS: LISINOPRIL 10 MG TABLET PO SCH (08:53)
[2017-12-20] MEDS ORDERED: TOBRAMYCIN 80 MG/2 ML VIAL RESP TX SCH (12:00)
[2017-12-20] MEDS ORDERED: LEVOFLOXACIN INJ 750 MG in PREMIX 1 EACH IV SCH (12:00)
[2017-12-20] MEDS: methylPREDNISolone SOD SUC 40 MG/1 ML VIAL IV SCH (12:06)
[2017-12-20 14:47] VITALS: BP 145/90
== END 2017-12-20 15:00 | DRG 917 ==
LOC: EDUNIT# → EDBD → N.ED 17:30 → SUATTDRO 20:29 → SUPCPDRO 20:29 → N.EDINP 20:29 → N.CC 21:31 → N.ICU 12-11 14:21
PROVIDERS: ADMIT Internal Medicine; ATTEND Internal Medicine

== ENCOUNTER 2018-04-07 10:08 | Inpatient (IN) ==
[2018-04-07] MEDS ORDERED: PANTOPRAZOLE 40 MG VIAL IV STA (10:25)
[2018-04-07] MEDS ORDERED: SODIUM CHLORIDE 0.9% 500 ML IV STA (10:25)
[2018-04-07 10:49] LABS: Basophils # 0.1 10*3/uL (0.0-0.2); Basophils % 0.4 % (0.0-0.8); Hematocrit 40.1 VOL% (35.7-47.0); Hemoglobin 12.2 GM/DL (12.0-16.0); Immature Granulocytes % 0.3 %; Immature Granulocytes Absolute 0.04 #; Lymphocytes # 2.5 10*3/uL (1.4-4.0); Lymphocytes % 18.5 % (21.3-54.2); Mean Corpuscular HGB Conc 30.4 GM/DL (32-36); Mean Corpuscular Hemoglobin 25 PG (27-34); Mean Corpuscular Volume 81.2 FL (87-102); Mean Platelet Volume 10.2 FL (9.6-12.0); Monocytes # 0.9 10*3/uL (0.11-0.8); Monocytes % 6.3 % (1.7-12.7); Neutrophils # 10.1 10*3/uL (1.4-7.4); Neutrophils % 74.5 % (38.7-73.9); Platelet Count 515 T/CUMM (130-400); Red Blood Count 4.94 MC/CUMM (3.8-5.5); Red Cell Distribution Width 14.9 % (9.3-17.3); White Blood Count 13.6 T/CUMM (4-12)
[2018-04-07 10:58] LABS: PT Patient Result 10.6 SECS; Partial Thromboplastin Time 26.4 SECS (0-40)
[2018-04-07 11:19] LABS: Alanine Aminotransferase 32 U/L (13-56); Albumin 3.1 G/DL (3.4-5.0); Alkaline Phosphatase 99 U/L (45-117); Aspartate Amino Transferase 34 U/L (0-37); Bilirubin,Total < 0.39 MG/DL (0.2-1.0); Blood Urea Nitrogen 20 MG/DL (7-18); Calcium 8.9 MG/DL (8.5-10.1); Glucose 119 MG/DL (74-106); Osmolality,Calculated 286.1 MOS/KG (273-304); Potassium 3.7 MMOL/L (3.5-5.1); Sodium 142 MMOL/L (136-145); Total Protein 8.5 G/DL (6.4-8.3)
[2018-04-07 15:06] LABS: Hematocrit 36.7 VOL% (35.7-47.0); Hemoglobin 11.6 GM/DL (12.0-16.0)
[2018-04-07] MEDS ORDERED: ONDANSETRON 4 MG/2 ML VIAL IV PRN (16:01)
[2018-04-07] MEDS ORDERED: SODIUM CHLORIDE 0.9% 1,000 ML IV STA (16:01)
[2018-04-07] MEDS: ENOXAPARIN 40 MG/0.4 ML SYRINGE SUBCUT SCH (17:51)
[2018-04-07] MEDS: SODIUM CHLORIDE 0.9% 1,000 ML IV SCH ×2 (17:51→22:37)
[2018-04-07] MEDS: BACLOFEN 10 MG TABLET PER TUBE SCH (17:52)
[2018-04-07] MEDS: METOPROLOL TARTRATE 25 MG TABLET PER TUBE SCH (17:52)
[2018-04-07] MEDS: DONEPEZIL 10 MG TABLET PER TUBE SCH (22:23)
[2018-04-07 23:57] LABS: Hematocrit 35.7 VOL% (35.7-47.0); Hemoglobin 10.8 GM/DL (12.0-16.0)
[2018-04-08 02:48] LABS: Hematocrit 33.8 VOL% (35.7-47.0); Hemoglobin 10.2 GM/DL (12.0-16.0)
[2018-04-08 02:49] LABS: Basophils # 0.1 10*3/uL (0.0-0.2); Basophils % 0.4 % (0.0-0.8); Eosinophils # 0.1 10*3/uL (0.0-0.87); Eosinophils % 0.8 % (0.00-10.9); Hemoglobin 10.2 GM/DL (12.0-16.0); Immature Granulocytes % 0.2 %; Immature Granulocytes Absolute 0.03 #; Lymphocytes # 4.5 10*3/uL (1.4-4.0); Lymphocytes % 33.3 % (21.3-54.2); Mean Corpuscular HGB Conc 30.9 GM/DL (32-36); Mean Corpuscular Hemoglobin 25 PG (27-34); Mean Corpuscular Volume 81.3 FL (87-102); Mean Platelet Volume 11.2 FL (9.6-12.0); Monocytes # 1.3 10*3/uL (0.11-0.8); Monocytes % 9.6 % (1.7-12.7); Neutrophils # 7.5 10*3/uL (1.4-7.4); Neutrophils % 55.7 % (38.7-73.9); Platelet Count 337 T/CUMM (130-400); Red Blood Count 4.06 MC/CUMM (3.8-5.5); Red Cell Distribution Width 15.1 % (9.3-17.3); White Blood Count 13.5 T/CUMM (4-12)
[2018-04-08 02:52] LABS: Calcium 8.3 MG/DL (8.5-10.1); Osmolality,Calculated 290.6 MOS/KG (273-304); Potassium 3.7 MMOL/L (3.5-5.1)
[2018-04-08 09:29] LABS: Hematocrit 32.5 VOL% (35.7-47.0); Hemoglobin 9.8 GM/DL (12.0-16.0)
[2018-04-08] MEDS: LISINOPRIL 10 MG TABLET PER TUBE SCH (10:28)
[2018-04-08] MEDS: amLODIPine 5 MG TABLET PER TUBE SCH (10:28)
[2018-04-08] MEDS: METOPROLOL TARTRATE 25 MG TABLET PER TUBE SCH ×2 (10:28→16:57)
[2018-04-08] MEDS: BACLOFEN 10 MG TABLET PER TUBE SCH ×3 (10:28→16:57)
[2018-04-08] MEDS: PANTOPRAZOLE 40 MG TABLET PO SCH (10:28)
[2018-04-08] MEDS: SODIUM CHLORIDE 0.9% 1,000 ML IV SCH ×2 (12:39→18:53)
[2018-04-08 15:12] LABS: Hematocrit 31.6 VOL% (35.7-47.0); Hemoglobin 9.3 GM/DL (12.0-16.0)
[2018-04-08] MEDS: ENOXAPARIN 40 MG/0.4 ML SYRINGE SUBCUT SCH (18:00)
[2018-04-08] MEDS: DONEPEZIL 10 MG TABLET PER TUBE SCH (22:10)
[2018-04-09 03:40] LABS: Basophils # 0.1 10*3/uL (0.0-0.2); Basophils % 0.6 % (0.0-0.8); Eosinophils # 0.2 10*3/uL (0.0-0.87); Eosinophils % 1.6 % (0.00-10.9); Hematocrit 29.6 VOL% (35.7-47.0); Hemoglobin 8.8 GM/DL (12.0-16.0); Immature Granulocytes % 0.4 %; Immature Granulocytes Absolute 0.05 #; Lymphocytes # 3.3 10*3/uL (1.4-4.0); Lymphocytes % 27.1 % (21.3-54.2); Mean Corpuscular HGB Conc 29.7 GM/DL (32-36); Mean Corpuscular Hemoglobin 25 PG (27-34); Mean Corpuscular Volume 83.9 FL (87-102); Mean Platelet Volume 10.3 FL (9.6-12.0); Monocytes # 1.1 10*3/uL (0.11-0.8); Monocytes % 8.7 % (1.7-12.7); Neutrophils # 7.5 10*3/uL (1.4-7.4); Neutrophils % 61.6 % (38.7-73.9); Platelet Count 378 T/CUMM (130-400); Red Blood Count 3.53 MC/CUMM (3.8-5.5); Red Cell Distribution Width 14.8 % (9.3-17.3); White Blood Count 12.2 T/CUMM (4-12)
[2018-04-09 04:34] LABS: Prealbumin 17.9 MG/DL (20-40)
[2018-04-09] MEDS: amLODIPine 5 MG TABLET PER TUBE SCH (10:56)
[2018-04-09] MEDS: LISINOPRIL 10 MG TABLET PER TUBE SCH (10:56)
[2018-04-09] MEDS: BACLOFEN 10 MG TABLET PER TUBE SCH ×3 (10:56→16:30)
[2018-04-09] MEDS: PANTOPRAZOLE 40 MG TABLET PO SCH (10:56)
[2018-04-09] MEDS: METOPROLOL TARTRATE 25 MG TABLET PER TUBE SCH ×2 (10:57→16:30)
[2018-04-09] MEDS: SODIUM CHLORIDE 0.9% 1,000 ML IV SCH ×2 (12:03→13:08)
[2018-04-09] MEDS: ENOXAPARIN 40 MG/0.4 ML SYRINGE SUBCUT SCH (16:30)
[2018-04-09] MEDS: DONEPEZIL 10 MG TABLET PER TUBE SCH (20:06)
[2018-04-10] MEDS: METOPROLOL TARTRATE 25 MG TABLET PER TUBE SCH ×2 (09:22→16:10)
[2018-04-10] MEDS: LISINOPRIL 10 MG TABLET PER TUBE SCH (09:22)
[2018-04-10] MEDS: BACLOFEN 10 MG TABLET PER TUBE SCH ×3 (09:23→16:10)
[2018-04-10] MEDS: amLODIPine 5 MG TABLET PER TUBE SCH (09:23)
[2018-04-10] MEDS: PANTOPRAZOLE 40 MG TABLET PO SCH (09:23)
[2018-04-10] MEDS: ENOXAPARIN 40 MG/0.4 ML SYRINGE SUBCUT SCH (16:10)
[2018-04-10] MEDS: DONEPEZIL 10 MG TABLET PER TUBE SCH (21:54)
[2018-04-11] MEDS: LISINOPRIL 10 MG TABLET PER TUBE SCH ×2 (07:51→08:56)
[2018-04-11] MEDS: METOPROLOL TARTRATE 25 MG TABLET PER TUBE SCH ×3 (07:51→16:18)
[2018-04-11] MEDS: BACLOFEN 10 MG TABLET PER TUBE SCH ×4 (07:51→16:18)
[2018-04-11] MEDS: amLODIPine 5 MG TABLET PER TUBE SCH ×2 (07:52→08:56)
[2018-04-11] MEDS: PANTOPRAZOLE 40 MG TABLET PO SCH ×2 (07:52→08:57)
[2018-04-11] MEDS: ENOXAPARIN 40 MG/0.4 ML SYRINGE SUBCUT SCH (16:18)
[2018-04-11] MEDS: DONEPEZIL 10 MG TABLET PER TUBE SCH (22:21)
[2018-04-12] MEDS: METOPROLOL TARTRATE 25 MG TABLET PER TUBE SCH ×2 (08:37→17:36)
[2018-04-12] MEDS: BACLOFEN 10 MG TABLET PER TUBE SCH ×3 (08:38→16:54)
[2018-04-12] MEDS: LISINOPRIL 10 MG TABLET PER TUBE SCH (08:38)
[2018-04-12] MEDS: PANTOPRAZOLE 40 MG TABLET PO SCH (08:38)
[2018-04-12] MEDS: amLODIPine 5 MG TABLET PER TUBE SCH (08:48)
[2018-04-12] MEDS: ENOXAPARIN 40 MG/0.4 ML SYRINGE SUBCUT SCH (16:54)
[2018-04-12] MEDS: DONEPEZIL 10 MG TABLET PER TUBE SCH (21:30)
[2018-04-13 04:12] LABS: Basophils # 0.1 10*3/uL (0.0-0.2); Basophils % 0.6 % (0.0-0.8); Eosinophils # 0.2 10*3/uL (0.0-0.87); Hematocrit 31.8 VOL% (35.7-47.0); Hemoglobin 9.8 GM/DL (12.0-16.0); Immature Granulocytes % 0.3 %; Immature Granulocytes Absolute 0.04 #; Lymphocytes # 3.6 10*3/uL (1.4-4.0); Lymphocytes % 25.1 % (21.3-54.2); Mean Corpuscular HGB Conc 30.8 GM/DL (32-36); Mean Corpuscular Hemoglobin 25 PG (27-34); Mean Corpuscular Volume 81.1 FL (87-102); Mean Platelet Volume 10.3 FL (9.6-12.0); Monocytes # 1.3 10*3/uL (0.11-0.8); Monocytes % 8.8 % (1.7-12.7); Neutrophils # 9.2 10*3/uL (1.4-7.4); Neutrophils % 64.2 % (38.7-73.9); Platelet Count 389 T/CUMM (130-400); Red Blood Count 3.92 MC/CUMM (3.8-5.5); Red Cell Distribution Width 14.9 % (9.3-17.3); White Blood Count 14.4 T/CUMM (4-12)
[2018-04-13 04:36] LABS: Calcium 8.6 MG/DL (8.5-10.1); Osmolality,Calculated 283.1 MOS/KG (273-304); Potassium 3.5 MMOL/L (3.5-5.1)
[2018-04-13] MEDS: BACLOFEN 10 MG TABLET PER TUBE SCH ×3 (08:49→17:15)
[2018-04-13] MEDS: PANTOPRAZOLE 40 MG TABLET PO SCH (08:49)
[2018-04-13] MEDS: METOPROLOL TARTRATE 25 MG TABLET PER TUBE SCH ×2 (08:49→17:15)
[2018-04-13] MEDS: LISINOPRIL 10 MG TABLET PER TUBE SCH (08:50)
[2018-04-13] MEDS: amLODIPine 5 MG TABLET PER TUBE SCH (08:50)
[2018-04-13] MEDS: PIPERACILLIN/TAZOBACTAM 3,375 MG in SODIUM CHLORIDE 0.9% 100 ML IV SCH ×2 (12:34→17:40)
[2018-04-13 12:48] LABS: Apearance,Urine CLOUDY (Clear); Bilirubin,Urine Negative (Negative); Blood, Urine Negative (Negative); Glucose,Urine (UA) Negative (Negative); Ketones,Urine Negative (Negative); Mucus,Urine Occasional /LPF (Occasional); Nitrite,Urine Negative (Negative); Protein,Urine 30 MG/DL; RBC,Urine 23 /HPF (0-4); Squamous Epithelial Cell,Urine Occasional /HPF (0-10); Urine Color Yellow (Yellow); Urine Specific Gravity 1.019 (1.001-1.035); Urine Urobilinogen < 2.0 EU/DL (0.2-1.0); WBC,Urine 355 /HPF (0-6)
[2018-04-13] MEDS: ENOXAPARIN 40 MG/0.4 ML SYRINGE SUBCUT SCH (17:15)
[2018-04-13] MEDS: DONEPEZIL 10 MG TABLET PER TUBE SCH (22:00)
[2018-04-14] MEDS: PIPERACILLIN/TAZOBACTAM 3,375 MG in SODIUM CHLORIDE 0.9% 100 ML IV SCH ×3 (02:18→17:33)
[2018-04-14 08:07] LABS: Basophils # 0.1 10*3/uL (0.0-0.2); Basophils % 0.6 % (0.0-0.8); Eosinophils # 0.2 10*3/uL (0.0-0.87); Eosinophils % 1.2 % (0.00-10.9); Hematocrit 30.7 VOL% (35.7-47.0); Hemoglobin 9.7 GM/DL (12.0-16.0); Immature Granulocytes % 0.2 %; Immature Granulocytes Absolute 0.03 #; Lymphocytes # 2.5 10*3/uL (1.4-4.0); Lymphocytes % 20.2 % (21.3-54.2); Mean Corpuscular HGB Conc 31.6 GM/DL (32-36); Mean Corpuscular Hemoglobin 26 PG (27-34); Mean Corpuscular Volume 81.2 FL (87-102); Mean Platelet Volume 10.1 FL (9.6-12.0); Monocytes % 8.2 % (1.7-12.7); Neutrophils # 8.6 10*3/uL (1.4-7.4); Neutrophils % 69.6 % (38.7-73.9); Platelet Count 383 T/CUMM (130-400); Red Blood Count 3.78 MC/CUMM (3.8-5.5); Red Cell Distribution Width 14.7 % (9.3-17.3); White Blood Count 12.4 T/CUMM (4-12)
[2018-04-14 08:35] LABS: Osmolality,Calculated 280.4 MOS/KG (273-304); Potassium 3.4 MMOL/L (3.5-5.1)
[2018-04-14] MEDS: PANTOPRAZOLE 40 MG TABLET PO SCH (09:06)
[2018-04-14] MEDS: amLODIPine 5 MG TABLET PER TUBE SCH (09:06)
[2018-04-14] MEDS: BACLOFEN 10 MG TABLET PER TUBE SCH ×3 (09:06→16:44)
[2018-04-14] MEDS: METOPROLOL TARTRATE 25 MG TABLET PER TUBE SCH ×2 (09:06→16:44)
[2018-04-14] MEDS: LISINOPRIL 10 MG TABLET PER TUBE SCH (09:06)
[2018-04-14] MEDS: POTASSIUM CHLORIDE 20 MEQ/15 ML UDCUP PER TUBE PRN ×3 (10:36→15:14)
[2018-04-14] MEDS: ENOXAPARIN 40 MG/0.4 ML SYRINGE SUBCUT SCH (16:44)
[2018-04-14] MEDS: ZINC OXIDE PASTE 113 GM TUBE TOP SCH ×2 (16:44→21:55)
[2018-04-14] MEDS: DONEPEZIL 10 MG TABLET PER TUBE SCH (21:55)
[2018-04-15] MEDS: PIPERACILLIN/TAZOBACTAM 3,375 MG in SODIUM CHLORIDE 0.9% 100 ML IV SCH ×3 (01:18→18:35)
[2018-04-15 05:58] LABS: Basophils # 0.1 10*3/uL (0.0-0.2); Basophils % 0.6 % (0.0-0.8); Eosinophils # 0.4 10*3/uL (0.0-0.87); Eosinophils % 3.5 % (0.00-10.9); Hemoglobin 9.5 GM/DL (12.0-16.0); Immature Granulocytes % 0.2 %; Immature Granulocytes Absolute 0.02 #; Lymphocytes # 3.1 10*3/uL (1.4-4.0); Lymphocytes % 29.7 % (21.3-54.2); Mean Corpuscular HGB Conc 30.6 GM/DL (32-36); Mean Corpuscular Hemoglobin 25 PG (27-34); Mean Corpuscular Volume 81.4 FL (87-102); Mean Platelet Volume 10.6 FL (9.6-12.0); Monocytes # 0.9 10*3/uL (0.11-0.8); Monocytes % 8.5 % (1.7-12.7); Neutrophils % 57.5 % (38.7-73.9); Platelet Count 371 T/CUMM (130-400); Red Blood Count 3.81 MC/CUMM (3.8-5.5); Red Cell Distribution Width 14.9 % (9.3-17.3); White Blood Count 10.5 T/CUMM (4-12)
[2018-04-15 07:06] LABS: Calcium 8.8 MG/DL (8.5-10.1); Osmolality,Calculated 280.3 MOS/KG (273-304); Potassium 3.8 MMOL/L (3.5-5.1)
[2018-04-15] MEDS: PANTOPRAZOLE 40 MG TABLET PO SCH (10:13)
[2018-04-15] MEDS: amLODIPine 5 MG TABLET PER TUBE SCH (10:13)
[2018-04-15] MEDS: METOPROLOL TARTRATE 25 MG TABLET PER TUBE SCH ×2 (10:13→16:28)
[2018-04-15] MEDS: LISINOPRIL 10 MG TABLET PER TUBE SCH (10:13)
[2018-04-15] MEDS: ZINC OXIDE PASTE 113 GM TUBE TOP SCH ×2 (10:20→20:32)
[2018-04-15] MEDS: BACLOFEN 10 MG TABLET PER TUBE SCH ×3 (10:22→16:28)
[2018-04-15] MEDS: MULTIVITAMIN LIQUID (CENTRUM) 60 ML BOTTLE PER TUBE SCH (12:19)
[2018-04-15] MEDS: ENOXAPARIN 40 MG/0.4 ML SYRINGE SUBCUT SCH (16:28)
[2018-04-15] MEDS: DONEPEZIL 10 MG TABLET PER TUBE SCH (20:32)
[2018-04-16] MEDS: PIPERACILLIN/TAZOBACTAM 3,375 MG in SODIUM CHLORIDE 0.9% 100 ML IV SCH (01:21)
[2018-04-16] MEDS: METOPROLOL TARTRATE 25 MG TABLET PER TUBE SCH ×2 (08:51→16:51)
[2018-04-16] MEDS: MULTIVITAMIN LIQUID (CENTRUM) 60 ML BOTTLE PER TUBE SCH (08:51)
[2018-04-16] MEDS: PANTOPRAZOLE 40 MG TABLET PO SCH (08:51)
[2018-04-16] MEDS: ZINC OXIDE PASTE 113 GM TUBE TOP SCH ×2 (08:51→21:35)
[2018-04-16] MEDS: LISINOPRIL 10 MG TABLET PER TUBE SCH (08:51)
[2018-04-16] MEDS: BACLOFEN 10 MG TABLET PER TUBE SCH ×3 (08:52→16:51)
[2018-04-16] MEDS: amLODIPine 5 MG TABLET PER TUBE SCH (08:52)
[2018-04-16] MEDS: CIPROFLOXACIN 100 MG/ML 100 ML/BOTTLE PEG SCH ×2 (10:47→21:35)
[2018-04-16] MEDS: ENOXAPARIN 40 MG/0.4 ML SYRINGE SUBCUT SCH (16:51)
[2018-04-16] MEDS: DONEPEZIL 10 MG TABLET PER TUBE SCH (21:35)
[2018-04-17 05:52] LABS: Basophils # 0.1 10*3/uL (0.0-0.2); Basophils % 0.6 % (0.0-0.8); Eosinophils # 0.4 10*3/uL (0.0-0.87); Hematocrit 33.9 VOL% (35.7-47.0); Hemoglobin 10.3 GM/DL (12.0-16.0); Immature Granulocytes % 0.3 %; Immature Granulocytes Absolute 0.04 #; Lymphocytes % 26.1 % (21.3-54.2); Mean Corpuscular HGB Conc 30.4 GM/DL (32-36); Mean Corpuscular Hemoglobin 25 PG (27-34); Mean Corpuscular Volume 81.3 FL (87-102); Mean Platelet Volume 10.2 FL (9.6-12.0); Neutrophils # 7.1 10*3/uL (1.4-7.4); Platelet Count 398 T/CUMM (130-400); Red Blood Count 4.17 MC/CUMM (3.8-5.5); Red Cell Distribution Width 14.6 % (9.3-17.3); White Blood Count 11.6 T/CUMM (4-12)
[2018-04-17 06:15] LABS: Calcium 8.9 MG/DL (8.5-10.1); Osmolality,Calculated 279.4 MOS/KG (273-304); Potassium 3.6 MMOL/L (3.5-5.1)
[2018-04-17] MEDS: MULTIVITAMIN LIQUID (CENTRUM) 60 ML BOTTLE PER TUBE SCH (08:35)
[2018-04-17] MEDS: CIPROFLOXACIN 100 MG/ML 100 ML/BOTTLE PEG SCH ×2 (08:35→21:04)
[2018-04-17] MEDS: amLODIPine 5 MG TABLET PER TUBE SCH (08:36)
[2018-04-17] MEDS: METOPROLOL TARTRATE 25 MG TABLET PER TUBE SCH ×2 (08:36→16:18)
[2018-04-17] MEDS: PANTOPRAZOLE 40 MG TABLET PO SCH (08:36)
[2018-04-17] MEDS: LISINOPRIL 10 MG TABLET PER TUBE SCH (08:36)
[2018-04-17] MEDS: ZINC OXIDE PASTE 113 GM TUBE TOP SCH ×2 (08:36→21:04)
[2018-04-17] MEDS: BACLOFEN 10 MG TABLET PER TUBE SCH ×3 (08:36→16:18)
[2018-04-17] MEDS: POTASSIUM CHLORIDE 20 MEQ/15 ML UDCUP PER TUBE PRN ×2 (08:36→12:04)
[2018-04-17] MEDS: ENOXAPARIN 40 MG/0.4 ML SYRINGE SUBCUT SCH (16:18)
[2018-04-17] MEDS: DONEPEZIL 10 MG TABLET PER TUBE SCH (21:04)
[2018-04-18 03:56] LABS: Basophils # 0.1 10*3/uL (0.0-0.2); Basophils % 0.7 % (0.0-0.8); Eosinophils # 0.3 10*3/uL (0.0-0.87); Eosinophils % 2.1 % (0.00-10.9); Hematocrit 32.5 VOL% (35.7-47.0); Hemoglobin 9.9 GM/DL (12.0-16.0); Immature Granulocytes % 0.2 %; Immature Granulocytes Absolute 0.03 #; Lymphocytes # 4.7 10*3/uL (1.4-4.0); Lymphocytes % 34.5 % (21.3-54.2); Mean Corpuscular HGB Conc 30.5 GM/DL (32-36); Mean Corpuscular Hemoglobin 25 PG (27-34); Mean Platelet Volume 10.2 FL (9.6-12.0); Monocytes # 1.2 10*3/uL (0.11-0.8); Monocytes % 8.9 % (1.7-12.7); Neutrophils # 7.3 10*3/uL (1.4-7.4); Neutrophils % 53.6 % (38.7-73.9); Platelet Count 439 T/CUMM (130-400); Red Blood Count 4.01 MC/CUMM (3.8-5.5); Red Cell Distribution Width 14.6 % (9.3-17.3); White Blood Count 13.6 T/CUMM (4-12)
[2018-04-18 04:33] LABS: Calcium 9.3 MG/DL (8.5-10.1); Osmolality,Calculated 281.3 MOS/KG (273-304)
[2018-04-18 04:36] LABS: Prealbumin 24.3 MG/DL (20-40)
[2018-04-18] MEDS: LISINOPRIL 10 MG TABLET PER TUBE SCH (09:12)
[2018-04-18] MEDS: amLODIPine 5 MG TABLET PER TUBE SCH (09:12)
[2018-04-18] MEDS: ZINC OXIDE PASTE 113 GM TUBE TOP SCH (09:13)
[2018-04-18] MEDS: MULTIVITAMIN LIQUID (CENTRUM) 60 ML BOTTLE PER TUBE SCH (09:13)
[2018-04-18] MEDS: METOPROLOL TARTRATE 25 MG TABLET PER TUBE SCH ×2 (09:13→17:55)
[2018-04-18] MEDS: PANTOPRAZOLE 40 MG TABLET PO SCH (09:13)
[2018-04-18] MEDS: BACLOFEN 10 MG TABLET PER TUBE SCH ×3 (09:13→17:55)
[2018-04-18] MEDS: CIPROFLOXACIN 100 MG/ML 100 ML/BOTTLE PEG SCH ×2 (09:13→21:00)
[2018-04-18] MEDS: ENOXAPARIN 40 MG/0.4 ML SYRINGE SUBCUT SCH (17:55)
[2018-04-18] MEDS: DONEPEZIL 10 MG TABLET PER TUBE SCH (21:00)
[2018-04-19] MEDS: ZINC OXIDE PASTE 113 GM TUBE TOP SCH ×3 (00:39→20:48)
[2018-04-19] MEDS: PANTOPRAZOLE 40 MG TABLET PO SCH (09:32)
[2018-04-19] MEDS: BACLOFEN 10 MG TABLET PER TUBE SCH ×3 (09:32→17:00)
[2018-04-19] MEDS: amLODIPine 5 MG TABLET PER TUBE SCH (09:32)
[2018-04-19] MEDS: METOPROLOL TARTRATE 25 MG TABLET PER TUBE SCH ×2 (09:33→17:00)
[2018-04-19] MEDS: CIPROFLOXACIN 100 MG/ML 100 ML/BOTTLE PEG SCH ×2 (09:33→20:48)
[2018-04-19] MEDS: LISINOPRIL 10 MG TABLET PER TUBE SCH (09:33)
[2018-04-19] MEDS: MULTIVITAMIN LIQUID (CENTRUM) 60 ML BOTTLE PER TUBE SCH (09:33)
[2018-04-19] MEDS: ENOXAPARIN 40 MG/0.4 ML SYRINGE SUBCUT SCH (17:00)
[2018-04-19] MEDS: DONEPEZIL 10 MG TABLET PER TUBE SCH (20:48)
[2018-04-20] MEDS: MULTIVITAMIN LIQUID (CENTRUM) 60 ML BOTTLE PER TUBE SCH (09:47)
[2018-04-20] MEDS: ZINC OXIDE PASTE 113 GM TUBE TOP SCH (09:47)
[2018-04-20] MEDS: BACLOFEN 10 MG TABLET PER TUBE SCH (09:47)
[2018-04-20] MEDS: amLODIPine 5 MG TABLET PER TUBE SCH (09:47)
[2018-04-20] MEDS: METOPROLOL TARTRATE 25 MG TABLET PER TUBE SCH (09:47)
[2018-04-20] MEDS: LISINOPRIL 10 MG TABLET PER TUBE SCH (09:48)
[2018-04-20] MEDS: PANTOPRAZOLE 40 MG TABLET PO SCH (09:48)
[2018-04-20 11:34] VITALS: BP 114/56
== END 2018-04-20 13:33 | disposition swing bed (61) | DRG 641 ==
LOC: EDUNIT# → EDBD → N.EDINP 10:08 → N.ED 10:08 → N.EDINP 16:53 → N.TELEN 16:56 → SUATTDRO 04-08 10:17
PROVIDERS: ADMIT Internal Medicine Geriatric Medicine; ATTEND Internal Medicine

== ENCOUNTER 2022-09-13 17:07 | Inpatient (IN) ==
[2022-09-13] MEDS ORDERED: ONDANSETRON 4 MG/2 ML VIAL IV PRN (20:44)
[2022-09-13] MEDS ORDERED: ACETAMINOPHEN 325 MG TABLET PEG PRN (20:44)
[2022-09-13] MEDS ORDERED: hydrALAZINE 20 MG/1 ML VIAL IV PRN (20:44)
[2022-09-13] MEDS ORDERED: MAGNESIUM HYDROXIDE SUSP 30 ML UDCUP PEG PRN (20:49)
[2022-09-13] MEDS ORDERED: VANCOMYCIN INJ 1,000 MG in SODIUM CHLORIDE 0.9% 250 ML IV ONE (21:30)
[2022-09-13] MEDS: PIPERACILLIN/TAZOBACTAM 3,375 MG in SODIUM CHLORIDE 0.9% 100 ML IV SCH (21:30)
[2022-09-13] MEDS: SODIUM CHLORIDE 0.45% 1,000 ML IV SCH (22:42)
[2022-09-13] MEDS: POLYETHYLENE GLYCOL POWDER 17 GM PACK PEG SCH (23:09)
[2022-09-13] MEDS: HEPARIN 5,000 UNIT/1 ML VIAL SUBCUT SCH (23:14)
[2022-09-14 05:59] LABS: Basophils # 0.1 10*3/uL (0.0-0.2); Basophils % 0.2 % (0.0-0.8); Eosinophils % 0.1 % (0.00-10.9); Hematocrit 41.1 VOL% (35.7-47.0); Hemoglobin 13.2 GM/DL (12.0-16.0); Immature Granulocytes % 0.7 %; Immature Granulocytes Absolute 0.23 #; Mean Corpuscular HGB Conc 32.1 GM/DL (32-36); Mean Corpuscular Volume 95.8 FL (87-102); Mean Platelet Volume 10.7 FL (9.6-12.0); Monocytes % 3.1 % (1.7-12.7); Neutrophils % 89.9 % (38.7-73.9); Platelet Count 252 T/CUMM (130-400); Red Blood Count 4.29 MC/CUMM (3.8-5.5); Red Cell Distribution Width 13.4 % (9.3-17.3); White Blood Count 33.6 T/CUMM (4-12)
[2022-09-14 06:21] LABS: Albumin 2.7 G/DL (3.4-5.0); Bilirubin,Total 0.4 MG/DL (0.20-1.00); Calcium 8.8 MG/DL (8.5-10.1); Osmolality,Calculated 293.6 MOS/KG (273-304); Potassium 3.2 MMOL/L (3.5-5.1); Thyroid Stimulating Hormone 0.523 uIU/ml (0.358-3.74); Total Protein 7.7 G/DL (6.4-8.2)
[2022-09-14 06:40] LABS: Band Neutrophils 2 % (0-10); Hypochromia Slight; Lymphocytes 8 % (20-55); Microcytosis Slight; Platelet Estimate Adequate; Total Cells Counted 100
[2022-09-14] MEDS: POLYETHYLENE GLYCOL POWDER 17 GM PACK PEG SCH ×2 (09:52→22:16)
[2022-09-14] MEDS: HEPARIN 5,000 UNIT/1 ML VIAL SUBCUT SCH ×2 (09:53→22:17)
[2022-09-14] MEDS: PIPERACILLIN/TAZOBACTAM 3,375 MG in SODIUM CHLORIDE 0.9% 100 ML IV SCH ×3 (14:06→17:43)
[2022-09-14] MEDS ORDERED: BISACODYL 10 MG SUPP RECTAL ONE (15:11)
[2022-09-14] MEDS ORDERED: BISACODYL 10 MG SUPP RECTAL PRN (15:11)
[2022-09-14] MEDS: VANCOMYCIN INJ 1,000 MG in SODIUM CHLORIDE 0.9% 250 ML IV SCH (15:17)
[2022-09-14] MEDS: SODIUM CHLORIDE 0.45% 1,000 ML IV SCH (15:18)
[2022-09-14] MEDS: ALBUTEROL/IPRATROPIUM 3 ML NEB RESP TX SCH (20:36)
[2022-09-14] MEDS ORDERED: SENNA 8.6 MG TABLET PEG SCH (21:00)
[2022-09-14] MEDS: LACTULOSE 20 GM/30 ML UDCUP PEG SCH (22:16)
[2022-09-14] MEDS: DOCUSATE SODIUM 100 MG CAPSULE PO SCH (22:16)
[2022-09-15] MEDS: VANCOMYCIN INJ 1,000 MG in SODIUM CHLORIDE 0.9% 250 ML IV SCH ×2 (01:00→21:42)
[2022-09-15] MEDS: PIPERACILLIN/TAZOBACTAM 3,375 MG in SODIUM CHLORIDE 0.9% 100 ML IV SCH ×3 (02:17→16:20)
[2022-09-15] MEDS: ALBUTEROL/IPRATROPIUM 3 ML NEB RESP TX SCH ×4 (02:44→20:16)
[2022-09-15 05:22] LABS: Bacteria,Urine Occasional /HPF (Few); Mucus,Urine Moderate /LPF (Occasional); RBC,Urine 22 /HPF (0-4); Squamous Epithelial Cell,Urine Occasional /HPF (0-10)
[2022-09-15 05:24] LABS: Glucose,Urine (UA) Negative (Negative); Ketones,Urine 15 mg/dL (Negative); Nitrite,Urine Negative (Negative); Protein,Urine >=300 mg/dL (Negative); Urine Appearance Slightly Hazy (Clear); Urine Color Yellow (Yellow); Urine Specific Gravity >= 1.030 (1.001-1.035)
[2022-09-15 05:25] LABS: Bilirubin,Urine Small mg/dL (Negative); Blood, Urine Moderate mg/dL (Negative); Urine Urobilinogen 0.2 eU/dL (<2.0)
[2022-09-15 06:12] LABS: Basophils % 0.1 % (0.0-0.8); Hematocrit 40.4 VOL% (35.7-47.0); Immature Granulocytes % 0.5 %; Immature Granulocytes Absolute 0.11 #; Lymphocytes % 8.2 % (21.3-54.2); Mean Corpuscular HGB Conc 32.2 GM/DL (32-36); Mean Corpuscular Volume 96.4 FL (87-102); Mean Platelet Volume 11.2 FL (9.6-12.0); Monocytes # 1.1 10*3/uL (0.11-0.8); Monocytes % 4.7 % (1.7-12.7); Neutrophils % 86.5 % (38.7-73.9); Platelet Count 277 T/CUMM (130-400); Red Blood Count 4.19 MC/CUMM (3.8-5.5); Red Cell Distribution Width 13.2 % (9.3-17.3); White Blood Count 23.9 T/CUMM (4-12)
[2022-09-15 06:40] LABS: Albumin 2.6 G/DL (3.4-5.0); Bilirubin,Total 0.4 MG/DL (0.20-1.00); Calcium 8.9 MG/DL (8.5-10.1); Osmolality,Calculated 291.7 MOS/KG (273-304); Potassium 2.9 MMOL/L (3.5-5.1); Total Protein 7.8 G/DL (6.4-8.2)
[2022-09-15 06:46] LABS: Band Neutrophils 2 % (0-10); Lymphocytes 7 % (20-55); Total Cells Counted 100
[2022-09-15 06:48] LABS: Platelet Estimate Normal
[2022-09-15] MEDS: POTASSIUM BICARB EFFERVESCENT 20 MEQ TAB.EFF PER TUBE PRN ×3 (07:03→18:00)
[2022-09-15] MEDS: SODIUM CHLORIDE 0.45% 1,000 ML IV SCH (09:28)
[2022-09-15] MEDS: LACTULOSE 20 GM/30 ML UDCUP PEG SCH ×2 (09:33→22:21)
[2022-09-15] MEDS: DOCUSATE SODIUM 100 MG CAPSULE PO SCH ×2 (09:35→22:21)
[2022-09-15] MEDS: HEPARIN 5,000 UNIT/1 ML VIAL SUBCUT SCH ×2 (09:36→22:21)
[2022-09-15] MEDS: POLYETHYLENE GLYCOL POWDER 17 GM PACK PEG SCH ×2 (09:36→22:21)
[2022-09-15] MEDS ORDERED: ZINC OXIDE PASTE 113 GM TUBE TOP PRN (14:00)
[2022-09-15] MEDS: SIMVASTATIN 10 MG TABLET PO SCH (22:21)
[2022-09-16] MEDS: ALBUTEROL/IPRATROPIUM 3 ML NEB RESP TX SCH ×4 (00:14→19:59)
[2022-09-16] MEDS: SODIUM CHLORIDE 0.45% 1,000 ML IV SCH ×2 (01:49→16:16)
[2022-09-16] MEDS: POTASSIUM BICARB EFFERVESCENT 20 MEQ TAB.EFF PER TUBE PRN ×6 (02:25→12:57)
[2022-09-16] MEDS: PIPERACILLIN/TAZOBACTAM 3,375 MG in SODIUM CHLORIDE 0.9% 100 ML IV SCH ×3 (02:30→16:16)
[2022-09-16 05:11] LABS: Basophils # 0.1 10*3/uL (0.0-0.2); Basophils % 0.3 % (0.0-0.8); Hematocrit 37.6 VOL% (35.7-47.0); Hemoglobin 12.3 GM/DL (12.0-16.0); Immature Granulocytes % 0.5 %; Immature Granulocytes Absolute 0.11 #; Lymphocytes # 2.6 10*3/uL (1.4-4.0); Lymphocytes % 11.4 % (21.3-54.2); Mean Corpuscular HGB Conc 32.7 GM/DL (32-36); Mean Platelet Volume 10.9 FL (9.6-12.0); Monocytes # 1.3 10*3/uL (0.11-0.8); Monocytes % 5.4 % (1.7-12.7); Neutrophils % 82.4 % (38.7-73.9); Platelet Count 258 T/CUMM (130-400); White Blood Count 23.2 T/CUMM (4-12)
[2022-09-16 05:33] LABS: Hypochromia Slight; Lymphocytes 12 % (20-55); Microcytosis Slight; Platelet Estimate Adequate; Total Cells Counted 100
[2022-09-16 05:55] LABS: Albumin 2.7 G/DL (3.4-5.0); Bilirubin,Total 0.5 MG/DL (0.20-1.00); Calcium 8.6 MG/DL (8.5-10.1); Potassium 3.2 MMOL/L (3.5-5.1); Total Protein 7.4 G/DL (6.4-8.2)
[2022-09-16] MEDS: LACTULOSE 20 GM/30 ML UDCUP PEG SCH (08:16)
[2022-09-16] MEDS: POLYETHYLENE GLYCOL POWDER 17 GM PACK PEG SCH ×2 (08:16→21:10)
[2022-09-16] MEDS: lisinopriL 10 MG TABLET PEG SCH (08:16)
[2022-09-16] MEDS: DOCUSATE SODIUM 100 MG CAPSULE PO SCH ×2 (08:16→21:10)
[2022-09-16] MEDS: HEPARIN 5,000 UNIT/1 ML VIAL SUBCUT SCH ×2 (08:53→21:11)
[2022-09-16] MEDS ORDERED: LACTULOSE 20 GM/30 ML UDCUP PEG PRN (12:53)
[2022-09-16] MEDS: VANCOMYCIN INJ 1,000 MG in SODIUM CHLORIDE 0.9% 250 ML IV SCH (16:15)
[2022-09-16] MEDS: SIMVASTATIN 10 MG TABLET PO SCH (21:11)
[2022-09-17] MEDS: ALBUTEROL/IPRATROPIUM 3 ML NEB RESP TX SCH ×4 (00:20→19:10)
[2022-09-17] MEDS: PIPERACILLIN/TAZOBACTAM 3,375 MG in SODIUM CHLORIDE 0.9% 100 ML IV SCH ×3 (01:59→16:13)
[2022-09-17] MEDS ORDERED: VANCOMYCIN INJ 1,000 MG in SODIUM CHLORIDE 0.9% 250 ML IV SCH (04:00)
[2022-09-17 05:42] LABS: Basophils # 0.1 10*3/uL (0.0-0.2); Basophils % 0.4 % (0.0-0.8); Eosinophils % 0.2 % (0.00-10.9); Hematocrit 37.8 VOL% (35.7-47.0); Hemoglobin 12.2 GM/DL (12.0-16.0); Immature Granulocytes % 0.6 %; Immature Granulocytes Absolute 0.07 #; Lymphocytes # 2.5 10*3/uL (1.4-4.0); Mean Corpuscular HGB Conc 32.3 GM/DL (32-36); Mean Corpuscular Volume 95.5 FL (87-102); Mean Platelet Volume 10.6 FL (9.6-12.0); Monocytes % 8.4 % (1.7-12.7); Neutrophils % 69.4 % (38.7-73.9); Platelet Count 237 T/CUMM (130-400); Red Blood Count 3.96 MC/CUMM (3.8-5.5); White Blood Count 12.1 T/CUMM (4-12)
[2022-09-17 06:14] LABS: Alanine Aminotransferase 26 U/L (13-56); Albumin 2.6 G/DL (3.4-5.0); Alkaline Phosphatase 75 U/L (45-117); Aspartate Amino Transferase 19 U/L (0-37); Bilirubin,Total < 0.39 MG/DL (0.20-1.00); Blood Urea Nitrogen 13 MG/DL (7-18); Calcium 8.8 MG/DL (8.5-10.1); Carbon Dioxide 30 MMOL/L (21-32); Chloride 105 MMOL/L (98-107); Glucose 96 MG/DL (74-106); Sodium 143 MMOL/L (136-145); Total Protein 7.1 G/DL (6.4-8.2)
[2022-09-17] MEDS: HEPARIN 5,000 UNIT/1 ML VIAL SUBCUT SCH ×2 (09:26→20:41)
[2022-09-17] MEDS: lisinopriL 10 MG TABLET PEG SCH (09:27)
[2022-09-17] MEDS: POLYETHYLENE GLYCOL POWDER 17 GM PACK PEG SCH ×2 (09:27→20:41)
[2022-09-17] MEDS: SODIUM CHLORIDE 0.45% 1,000 ML IV SCH (09:27)
[2022-09-17] MEDS: levETIRAcetam LIQUID 100 MG/ML 30 ML/BOTTLE PEG SCH ×2 (09:31→20:41)
[2022-09-17] MEDS: amLODIPine 5 MG TABLET PEG SCH (09:31)
[2022-09-17] MEDS: POTASSIUM BICARB EFFERVESCENT 20 MEQ TAB.EFF PER TUBE PRN (15:11)
[2022-09-17] MEDS ORDERED: SODIUM CHLORIDE 0.9% IV ONE (18:00)
[2022-09-17] MEDS ORDERED: SODIUM PHOSPHATE IV ONE (18:00)
[2022-09-17] MEDS: SIMVASTATIN 10 MG TABLET PO SCH (20:41)
[2022-09-18] MEDS: PIPERACILLIN/TAZOBACTAM 3,375 MG in SODIUM CHLORIDE 0.9% 100 ML IV SCH ×2 (01:00→09:18)
[2022-09-18] MEDS: ALBUTEROL/IPRATROPIUM 3 ML NEB RESP TX SCH ×4 (01:10→19:02)
[2022-09-18 06:23] LABS: Basophils # 0.1 10*3/uL (0.0-0.2); Basophils % 0.3 % (0.0-0.8); Eosinophils % 0.1 % (0.00-10.9); Hematocrit 36.7 VOL% (35.7-47.0); Immature Granulocytes % 0.7 %; Immature Granulocytes Absolute 0.14 #; Lymphocytes # 2.4 10*3/uL (1.4-4.0); Lymphocytes % 11.8 % (21.3-54.2); Mean Corpuscular HGB Conc 32.7 GM/DL (32-36); Mean Corpuscular Volume 93.6 FL (87-102); Mean Platelet Volume 10.8 FL (9.6-12.0); Monocytes # 0.9 10*3/uL (0.11-0.8); Monocytes % 4.6 % (1.7-12.7); Neutrophils % 82.5 % (38.7-73.9); Platelet Count 253 T/CUMM (130-400); Red Blood Count 3.92 MC/CUMM (3.8-5.5); Red Cell Distribution Width 13.1 % (9.3-17.3)
[2022-09-18 07:01] LABS: Albumin 2.6 G/DL (3.4-5.0); Bilirubin,Total 0.4 MG/DL (0.20-1.00); Calcium 9.3 MG/DL (8.5-10.1); Osmolality,Calculated 291.4 MOS/KG (273-304); Total Protein 7.4 G/DL (6.4-8.2)
[2022-09-18 07:03] LABS: Potassium 2.3 MMOL/L (3.5-5.1)
[2022-09-18 07:17] LABS: Anisocytosis Slight; Band Neutrophils 3 % (0-10); Lymphocytes 15 % (20-55); Macrocytosis Slight; Platelet Estimate Normal; Total Cells Counted 100
[2022-09-18] MEDS: levETIRAcetam LIQUID 100 MG/ML 30 ML/BOTTLE PEG SCH ×2 (09:17→21:52)
[2022-09-18] MEDS: amLODIPine 5 MG TABLET PEG SCH (09:17)
[2022-09-18] MEDS: lisinopriL 10 MG TABLET PEG SCH (09:17)
[2022-09-18] MEDS: POLYETHYLENE GLYCOL POWDER 17 GM PACK PEG SCH (09:18)
[2022-09-18] MEDS: POTASSIUM BICARB EFFERVESCENT 20 MEQ TAB.EFF PER TUBE PRN ×4 (09:18→11:47)
[2022-09-18] MEDS: HEPARIN 5,000 UNIT/1 ML VIAL SUBCUT SCH ×2 (09:18→21:50)
[2022-09-18] MEDS: ERTAPENEM 1,000 MG in SODIUM CHLORIDE 0.9% 100 ML IV SCH (17:06)
[2022-09-18] MEDS: SIMVASTATIN 10 MG TABLET PO SCH (21:49)
[2022-09-19] MEDS: ALBUTEROL/IPRATROPIUM 3 ML NEB RESP TX SCH ×4 (01:00→20:00)
[2022-09-19 05:27] LABS: Basophils # 0.1 10*3/uL (0.0-0.2); Basophils % 0.4 % (0.0-0.8); Eosinophils # 0.1 10*3/uL (0.0-0.87); Eosinophils % 0.8 % (0.00-10.9); Hematocrit 34.2 VOL% (35.7-47.0); Hemoglobin 11.1 GM/DL (12.0-16.0); Immature Granulocytes % 1.1 %; Immature Granulocytes Absolute 0.17 #; Lymphocytes # 2.9 10*3/uL (1.4-4.0); Lymphocytes % 17.8 % (21.3-54.2); Mean Corpuscular HGB Conc 32.5 GM/DL (32-36); Mean Corpuscular Volume 95.8 FL (87-102); Mean Platelet Volume 10.4 FL (9.6-12.0); Monocytes # 1.2 10*3/uL (0.11-0.8); Monocytes % 7.6 % (1.7-12.7); Neutrophils % 72.3 % (38.7-73.9); Platelet Count 220 T/CUMM (130-400); Red Blood Count 3.57 MC/CUMM (3.8-5.5); Red Cell Distribution Width 13.2 % (9.3-17.3)
[2022-09-19 05:53] LABS: Alanine Aminotransferase 18 U/L (13-56); Albumin 2.2 G/DL (3.4-5.0); Alkaline Phosphatase 65 U/L (45-117); Aspartate Amino Transferase 15 U/L (0-37); Bilirubin,Total < 0.39 MG/DL (0.20-1.00); Blood Urea Nitrogen 12 MG/DL (7-18); Carbon Dioxide 30 MMOL/L (21-32); Chloride 107 MMOL/L (98-107); Glucose 106 MG/DL (74-106); Potassium 3.1 MMOL/L (3.5-5.1); Sodium 143 MMOL/L (136-145); Total Protein 6.8 G/DL (6.4-8.2)
[2022-09-19] MEDS: POTASSIUM BICARB EFFERVESCENT 20 MEQ TAB.EFF PER TUBE PRN ×3 (06:09→16:24)
[2022-09-19] MEDS ORDERED: POTASSIUM CHLORIDE 20 MEQ TABLET PO ONE (09:02)
[2022-09-19] MEDS: lisinopriL 10 MG TABLET PEG SCH (09:05)
[2022-09-19] MEDS: HEPARIN 5,000 UNIT/1 ML VIAL SUBCUT SCH ×2 (09:05→21:23)
[2022-09-19] MEDS: levETIRAcetam LIQUID 100 MG/ML 30 ML/BOTTLE PEG SCH ×2 (09:05→21:23)
[2022-09-19] MEDS: amLODIPine 5 MG TABLET PEG SCH (09:05)
[2022-09-19] MEDS: POLYETHYLENE GLYCOL POWDER 17 GM PACK PEG SCH (11:05)
[2022-09-19] MEDS: ERTAPENEM 1,000 MG in SODIUM CHLORIDE 0.9% 100 ML IV SCH (17:12)
[2022-09-19] MEDS: SIMVASTATIN 10 MG TABLET PO SCH (21:23)
[2022-09-20] MEDS: ALBUTEROL/IPRATROPIUM 3 ML NEB RESP TX SCH ×4 (02:29→19:28)
[2022-09-20 04:49] LABS: Basophils # 0.1 10*3/uL (0.0-0.2); Basophils % 0.5 % (0.0-0.8); Eosinophils # 0.3 10*3/uL (0.0-0.87); Eosinophils % 1.4 % (0.00-10.9); Hematocrit 42.3 VOL% (35.7-47.0); Hemoglobin 13.3 GM/DL (12.0-16.0); Immature Granulocytes % 1.5 %; Immature Granulocytes Absolute 0.31 #; Lymphocytes # 3.4 10*3/uL (1.4-4.0); Lymphocytes % 16.7 % (21.3-54.2); Mean Corpuscular HGB Conc 31.4 GM/DL (32-36); Mean Corpuscular Volume 96.4 FL (87-102); Mean Platelet Volume 10.6 FL (9.6-12.0); Monocytes # 1.2 10*3/uL (0.11-0.8); Monocytes % 5.9 % (1.7-12.7); Platelet Count 309 T/CUMM (130-400); Red Blood Count 4.39 MC/CUMM (3.8-5.5); Red Cell Distribution Width 13.3 % (9.3-17.3); White Blood Count 20.4 T/CUMM (4-12)
[2022-09-20 05:04] LABS: Phosphorous 1.5 MG/DL (2.5-4.9)
[2022-09-20 05:07] LABS: Calcium 9.7 MG/DL (8.5-10.1); Potassium 3.5 MMOL/L (3.5-5.1)
[2022-09-20 05:18] LABS: Eosinophils 2 % (0-10); Lymphocytes 15 % (20-55); Platelet Estimate Adequate; Total Cells Counted 100
[2022-09-20] MEDS ORDERED: POTASSIUM CHLORIDE 20 MEQ TABLET PO ONE (09:00)
[2022-09-20] MEDS: POLYETHYLENE GLYCOL POWDER 17 GM PACK PEG SCH (10:32)
[2022-09-20] MEDS: levETIRAcetam LIQUID 100 MG/ML 30 ML/BOTTLE PEG SCH ×2 (10:32→21:30)
[2022-09-20] MEDS: HEPARIN 5,000 UNIT/1 ML VIAL SUBCUT SCH ×2 (10:33→21:30)
[2022-09-20] MEDS: lisinopriL 10 MG TABLET PEG SCH (10:33)
[2022-09-20] MEDS: amLODIPine 5 MG TABLET PEG SCH (10:33)
[2022-09-20] MEDS: MEROPENEM 500 MG in SODIUM CHLORIDE 0.9% 100 ML IV SCH ×2 (11:21→19:03)
[2022-09-20] MEDS ORDERED: CALCIUM ACETATE 667 MG CAPSULE PO SCH (12:00)
[2022-09-20] MEDS: VANCOMYCIN INJ 1,000 MG in SODIUM CHLORIDE 0.9% 250 ML IV SCH (12:20)
[2022-09-20] MEDS ORDERED: SODIUM PHOSPHATE INJ 30 MMOL in SODIUM CHLORIDE 0.9% 250 ML IV ONE (13:30)
[2022-09-20] MEDS: SIMVASTATIN 10 MG TABLET PO SCH (21:30)
[2022-09-21] MEDS: MEROPENEM 500 MG in SODIUM CHLORIDE 0.9% 100 ML IV SCH ×5 (00:19→20:50)
[2022-09-21] MEDS: VANCOMYCIN INJ 1,000 MG in SODIUM CHLORIDE 0.9% 250 ML IV SCH ×3 (00:19→22:20)
[2022-09-21] MEDS: ALBUTEROL/IPRATROPIUM 3 ML NEB RESP TX SCH ×4 (00:43→19:13)
[2022-09-21 06:05] LABS: Basophils # 0.1 10*3/uL (0.0-0.2); Basophils % 0.3 % (0.0-0.8); Eosinophils # 0.1 10*3/uL (0.0-0.87); Eosinophils % 0.3 % (0.00-10.9); Hematocrit 33.3 VOL% (35.7-47.0); Immature Granulocytes % 0.9 %; Lymphocytes # 2.5 10*3/uL (1.4-4.0); Lymphocytes % 7.5 % (21.3-54.2); Mean Corpuscular HGB Conc 31.8 GM/DL (32-36); Mean Corpuscular Volume 95.1 FL (87-102); Mean Platelet Volume 10.1 FL (9.6-12.0); Monocytes # 1.4 10*3/uL (0.11-0.8); Monocytes % 4.2 % (1.7-12.7); Neutrophils % 86.8 % (38.7-73.9); Platelet Count 276 T/CUMM (130-400)
[2022-09-21 06:20] LABS: White Blood Count 32.9 T/CUMM (4-12)
[2022-09-21 06:21] LABS: Hemoglobin 10.6 GM/DL (12.0-16.0)
[2022-09-21 06:32] LABS: Band Neutrophils 1 % (0-10); Eosinophils 1 % (0-10); Hypochromia Slight; Lymphocytes 4 % (20-55); Microcytosis Slight; Platelet Estimate Adequate; Total Cells Counted 100
[2022-09-21 06:39] LABS: Calcium 8.7 MG/DL (8.5-10.1); Osmolality,Calculated 290.7 MOS/KG (273-304); Potassium 3.6 MMOL/L (3.5-5.1)
[2022-09-21] MEDS: amLODIPine 5 MG TABLET PEG SCH (09:29)
[2022-09-21] MEDS: HEPARIN 5,000 UNIT/1 ML VIAL SUBCUT SCH ×2 (09:30→20:50)
[2022-09-21] MEDS: lisinopriL 10 MG TABLET PEG SCH (09:30)
[2022-09-21] MEDS: POLYETHYLENE GLYCOL POWDER 17 GM PACK PEG SCH (09:30)
[2022-09-21] MEDS: levETIRAcetam LIQUID 100 MG/ML 30 ML/BOTTLE PEG SCH ×2 (11:01→20:50)
[2022-09-21] MEDS: SIMVASTATIN 10 MG TABLET PO SCH (20:50)
[2022-09-22] MEDS: ALBUTEROL/IPRATROPIUM 3 ML NEB RESP TX SCH ×4 (00:03→20:05)
[2022-09-22] MEDS: MEROPENEM 500 MG in SODIUM CHLORIDE 0.9% 100 ML IV SCH ×3 (03:00→15:41)
[2022-09-22 04:44] LABS: Basophils # 0.1 10*3/uL (0.0-0.2); Basophils % 0.3 % (0.0-0.8); Eosinophils # 0.4 10*3/uL (0.0-0.87); Eosinophils % 1.7 % (0.00-10.9); Hematocrit 29.9 VOL% (35.7-47.0); Hemoglobin 9.2 GM/DL (12.0-16.0); Immature Granulocytes Absolute 0.26 #; Lymphocytes # 2.4 10*3/uL (1.4-4.0); Lymphocytes % 9.3 % (21.3-54.2); Mean Corpuscular HGB Conc 30.8 GM/DL (32-36); Mean Corpuscular Volume 98.4 FL (87-102); Mean Platelet Volume 10.1 FL (9.6-12.0); Monocytes # 1.2 10*3/uL (0.11-0.8); Monocytes % 4.5 % (1.7-12.7); Neutrophils % 83.2 % (38.7-73.9); Platelet Count 247 T/CUMM (130-400); Red Blood Count 3.04 MC/CUMM (3.8-5.5); Red Cell Distribution Width 13.9 % (9.3-17.3); White Blood Count 26.1 T/CUMM (4-12)
[2022-09-22 05:08] LABS: Eosinophils 2 % (0-10); Hypochromia Slight; Lymphocytes 8 % (20-55); Microcytosis Slight; Platelet Estimate Adequate; Total Cells Counted 100
[2022-09-22 05:17] LABS: Osmolality,Calculated 291.6 MOS/KG (273-304); Potassium 3.4 MMOL/L (3.5-5.1)
[2022-09-22] MEDS: SODIUM CHLORIDE 0.45% 1,000 ML IV SCH (08:39)
[2022-09-22] MEDS: HEPARIN 5,000 UNIT/1 ML VIAL SUBCUT SCH ×2 (08:43→20:00)
[2022-09-22] MEDS: POLYETHYLENE GLYCOL POWDER 17 GM PACK PEG SCH (08:43)
[2022-09-22] MEDS: amLODIPine 5 MG TABLET PEG SCH (08:43)
[2022-09-22] MEDS: levETIRAcetam LIQUID 100 MG/ML 30 ML/BOTTLE PEG SCH ×2 (08:44→20:00)
[2022-09-22] MEDS: lisinopriL 10 MG TABLET PEG SCH (08:44)
[2022-09-22] MEDS: VANCOMYCIN INJ 1,000 MG in SODIUM CHLORIDE 0.9% 250 ML IV SCH (11:34)
[2022-09-22] MEDS: SIMVASTATIN 10 MG TABLET PO SCH (20:00)
[2022-09-23] MEDS: ALBUTEROL/IPRATROPIUM 3 ML NEB RESP TX SCH ×4 (00:36→20:30)
[2022-09-23] MEDS: MEROPENEM 500 MG in SODIUM CHLORIDE 0.9% 100 ML IV SCH ×5 (01:24→21:34)
[2022-09-23] MEDS: SODIUM CHLORIDE 0.45% 1,000 ML IV SCH ×3 (01:24→15:44)
[2022-09-23] MEDS: VANCOMYCIN INJ 1,000 MG in SODIUM CHLORIDE 0.9% 250 ML IV SCH ×3 (01:40→22:28)
[2022-09-23 05:42] LABS: Basophils # 0.1 10*3/uL (0.0-0.2); Basophils % 0.5 % (0.0-0.8); Eosinophils # 0.6 10*3/uL (0.0-0.87); Eosinophils % 3.4 % (0.00-10.9); Hematocrit 29.3 VOL% (35.7-47.0); Hemoglobin 9.5 GM/DL (12.0-16.0); Immature Granulocytes % 1.3 %; Immature Granulocytes Absolute 0.24 #; Lymphocytes # 2.2 10*3/uL (1.4-4.0); Lymphocytes % 11.4 % (21.3-54.2); Mean Corpuscular HGB Conc 32.4 GM/DL (32-36); Mean Corpuscular Volume 96.4 FL (87-102); Monocytes % 5.4 % (1.7-12.7); Platelet Count 255 T/CUMM (130-400); Red Blood Count 3.04 MC/CUMM (3.8-5.5); Red Cell Distribution Width 13.2 % (9.3-17.3); White Blood Count 18.9 T/CUMM (4-12)
[2022-09-23 06:00] LABS: Calcium 8.4 MG/DL (8.5-10.1); Potassium 3.7 MMOL/L (3.5-5.1)
[2022-09-23] MEDS: lisinopriL 10 MG TABLET PEG SCH (09:48)
[2022-09-23] MEDS: amLODIPine 5 MG TABLET PEG SCH (09:48)
[2022-09-23] MEDS: levETIRAcetam LIQUID 100 MG/ML 30 ML/BOTTLE PEG SCH ×2 (09:48→20:51)
[2022-09-23] MEDS: HEPARIN 5,000 UNIT/1 ML VIAL SUBCUT SCH ×2 (09:51→20:52)
[2022-09-23] MEDS: POLYETHYLENE GLYCOL POWDER 17 GM PACK PEG SCH (10:51)
[2022-09-23] MEDS: SIMVASTATIN 10 MG TABLET PO SCH (20:51)
[2022-09-24] MEDS: ALBUTEROL/IPRATROPIUM 3 ML NEB RESP TX SCH ×4 (00:41→19:30)
[2022-09-24] MEDS: MEROPENEM 500 MG in SODIUM CHLORIDE 0.9% 100 ML IV SCH ×4 (04:16→21:55)
[2022-09-24] MEDS: amLODIPine 5 MG TABLET PEG SCH (09:23)
[2022-09-24] MEDS: levETIRAcetam LIQUID 100 MG/ML 30 ML/BOTTLE PEG SCH ×2 (09:23→22:48)
[2022-09-24] MEDS: lisinopriL 10 MG TABLET PEG SCH (09:23)
[2022-09-24] MEDS: SODIUM CHLORIDE 0.45% 1,000 ML IV SCH (09:23)
[2022-09-24] MEDS: HEPARIN 5,000 UNIT/1 ML VIAL SUBCUT SCH ×2 (09:33→21:55)
[2022-09-24] MEDS: POLYETHYLENE GLYCOL POWDER 17 GM PACK PEG SCH (09:57)
[2022-09-24 10:51] LABS: Basophils # 0.1 10*3/uL (0.0-0.2); Basophils % 0.5 % (0.0-0.8); Eosinophils # 0.3 10*3/uL (0.0-0.87); Eosinophils % 1.8 % (0.00-10.9); Hematocrit 33.6 VOL% (35.7-47.0); Hemoglobin 10.8 GM/DL (12.0-16.0); Immature Granulocytes % 1.2 %; Immature Granulocytes Absolute 0.21 #; Lymphocytes # 1.7 10*3/uL (1.4-4.0); Mean Corpuscular HGB Conc 32.1 GM/DL (32-36); Mean Corpuscular Volume 94.4 FL (87-102); Mean Platelet Volume 9.9 FL (9.6-12.0); Monocytes # 1.1 10*3/uL (0.11-0.8); Monocytes % 6.2 % (1.7-12.7); Neutrophils % 80.3 % (38.7-73.9); Platelet Count 379 T/CUMM (130-400); Red Blood Count 3.56 MC/CUMM (3.8-5.5); Red Cell Distribution Width 12.8 % (9.3-17.3); White Blood Count 17.2 T/CUMM (4-12)
[2022-09-24 11:12] LABS: Calcium 8.3 MG/DL (8.5-10.1); Potassium 3.7 MMOL/L (3.5-5.1)
[2022-09-24] MEDS: VANCOMYCIN INJ 1,000 MG in SODIUM CHLORIDE 0.9% 250 ML IV SCH (16:59)
[2022-09-24] MEDS: SIMVASTATIN 10 MG TABLET PO SCH (22:47)
[2022-09-25] MEDS: ALBUTEROL/IPRATROPIUM 3 ML NEB RESP TX SCH ×4 (01:27→20:10)
[2022-09-25] MEDS: MEROPENEM 500 MG in SODIUM CHLORIDE 0.9% 100 ML IV SCH ×4 (04:32→22:37)
[2022-09-25] MEDS: amLODIPine 5 MG TABLET PEG SCH (09:44)
[2022-09-25] MEDS: levETIRAcetam LIQUID 100 MG/ML 30 ML/BOTTLE PEG SCH ×2 (09:44→21:36)
[2022-09-25] MEDS: lisinopriL 10 MG TABLET PEG SCH (09:44)
[2022-09-25] MEDS: HEPARIN 5,000 UNIT/1 ML VIAL SUBCUT SCH ×2 (09:44→21:35)
[2022-09-25] MEDS: POLYETHYLENE GLYCOL POWDER 17 GM PACK PEG SCH (09:45)
[2022-09-25] MEDS: SODIUM CHLORIDE 0.45% 1,000 ML IV SCH (14:24)
[2022-09-25] MEDS: SIMVASTATIN 10 MG TABLET PO SCH (21:36)
[2022-09-26] MEDS: ALBUTEROL/IPRATROPIUM 3 ML NEB RESP TX SCH ×4 (00:50→19:00)
[2022-09-26] MEDS: MEROPENEM 500 MG in SODIUM CHLORIDE 0.9% 100 ML IV SCH ×4 (03:58→21:30)
[2022-09-26] MEDS: SODIUM CHLORIDE 0.45% 1,000 ML IV SCH ×2 (04:15→13:41)
[2022-09-26 05:47] LABS: Basophils # 0.1 10*3/uL (0.0-0.2); Basophils % 0.5 % (0.0-0.8); Eosinophils # 0.5 10*3/uL (0.0-0.87); Eosinophils % 2.9 % (0.00-10.9); Hematocrit 29.2 VOL% (35.7-47.0); Hemoglobin 9.4 GM/DL (12.0-16.0); Immature Granulocytes % 1.7 %; Immature Granulocytes Absolute 0.27 #; Lymphocytes # 2.7 10*3/uL (1.4-4.0); Lymphocytes % 16.6 % (21.3-54.2); Mean Corpuscular HGB Conc 32.2 GM/DL (32-36); Mean Corpuscular Volume 94.8 FL (87-102); Monocytes % 6.1 % (1.7-12.7); Neutrophils % 72.2 % (38.7-73.9); Platelet Count 353 T/CUMM (130-400); Red Blood Count 3.08 MC/CUMM (3.8-5.5); Red Cell Distribution Width 12.8 % (9.3-17.3); White Blood Count 16.3 T/CUMM (4-12)
[2022-09-26 05:55] LABS: Calcium 8.2 MG/DL (8.5-10.1); Osmolality,Calculated 285.8 MOS/KG (273-304); Potassium 3.1 MMOL/L (3.5-5.1)
[2022-09-26] MEDS: POTASSIUM BICARB EFFERVESCENT 20 MEQ TAB.EFF PER TUBE PRN (06:39)
[2022-09-26 08:34] LABS: Anisocytosis 1+; Band Neutrophils 2 % (0-10); Eosinophils 6 % (0-10); Lymphocytes 16 % (20-55); Platelet Estimate Normal; Total Cells Counted 100
[2022-09-26 08:35] LABS: Macrocytosis Slight
[2022-09-26] MEDS: amLODIPine 5 MG TABLET PEG SCH (09:25)
[2022-09-26] MEDS: lisinopriL 10 MG TABLET PEG SCH (09:25)
[2022-09-26] MEDS: HEPARIN 5,000 UNIT/1 ML VIAL SUBCUT SCH ×2 (09:25→20:45)
[2022-09-26] MEDS: POLYETHYLENE GLYCOL POWDER 17 GM PACK PEG SCH (09:25)
[2022-09-26] MEDS: levETIRAcetam LIQUID 100 MG/ML 30 ML/BOTTLE PEG SCH ×2 (09:26→20:45)
[2022-09-26] MEDS: POTASSIUM BICARB EFFERVESCENT 20 MEQ TAB.EFF PO SCH ×2 (09:29→20:45)
[2022-09-26] MEDS: SIMVASTATIN 10 MG TABLET PO SCH (20:45)
[2022-09-27] MEDS: ALBUTEROL/IPRATROPIUM 3 ML NEB RESP TX SCH ×4 (00:47→18:50)
[2022-09-27] MEDS: MEROPENEM 500 MG in SODIUM CHLORIDE 0.9% 100 ML IV SCH ×3 (03:00→16:48)
[2022-09-27 05:35] LABS: Basophils # 0.1 10*3/uL (0.0-0.2); Basophils % 0.6 % (0.0-0.8); Eosinophils # 0.4 10*3/uL (0.0-0.87); Eosinophils % 2.6 % (0.00-10.9); Hematocrit 28.9 VOL% (35.7-47.0); Hemoglobin 9.5 GM/DL (12.0-16.0); Immature Granulocytes % 1.6 %; Immature Granulocytes Absolute 0.22 #; Lymphocytes # 2.5 10*3/uL (1.4-4.0); Lymphocytes % 17.9 % (21.3-54.2); Mean Corpuscular HGB Conc 32.9 GM/DL (32-36); Mean Corpuscular Volume 95.1 FL (87-102); Mean Platelet Volume 9.4 FL (9.6-12.0); Monocytes % 7.3 % (1.7-12.7); Platelet Count 430 T/CUMM (130-400); Red Blood Count 3.04 MC/CUMM (3.8-5.5); White Blood Count 14.1 T/CUMM (4-12)
[2022-09-27 05:54] LABS: Calcium 8.9 MG/DL (8.5-10.1); Osmolality,Calculated 280.1 MOS/KG (273-304); Potassium 3.6 MMOL/L (3.5-5.1)
[2022-09-27 07:09] LABS: Anisocytosis Slight; Band Neutrophils 3 % (0-10); Eosinophils 7 % (0-10); Lymphocytes 19 % (20-55); Platelet Estimate Normal; Total Cells Counted 100
[2022-09-27 07:10] LABS: Macrocytosis Slight
[2022-09-27] MEDS: POTASSIUM BICARB EFFERVESCENT 20 MEQ TAB.EFF PO SCH ×2 (11:25→20:25)
[2022-09-27] MEDS: SODIUM CHLORIDE 0.45% 1,000 ML IV SCH (11:25)
[2022-09-27] MEDS: lisinopriL 10 MG TABLET PEG SCH (11:26)
[2022-09-27] MEDS: HEPARIN 5,000 UNIT/1 ML VIAL SUBCUT SCH ×2 (11:26→21:20)
[2022-09-27] MEDS: levETIRAcetam LIQUID 100 MG/ML 30 ML/BOTTLE PEG SCH ×2 (11:26→20:25)
[2022-09-27] MEDS: POLYETHYLENE GLYCOL POWDER 17 GM PACK PEG SCH (11:26)
[2022-09-27] MEDS: amLODIPine 5 MG TABLET PEG SCH (11:26)
[2022-09-27] MEDS: SIMVASTATIN 10 MG TABLET PO SCH (20:25)
[2022-09-28] MEDS: ALBUTEROL/IPRATROPIUM 3 ML NEB RESP TX SCH ×2 (00:30→07:35)
[2022-09-28 08:15] VITALS: BP 128/57
[2022-09-28] MEDS: SODIUM CHLORIDE 0.45% 1,000 ML IV SCH (09:00)
[2022-09-28] MEDS: HEPARIN 5,000 UNIT/1 ML VIAL SUBCUT SCH (09:11)
[2022-09-28] MEDS: amLODIPine 5 MG TABLET PEG SCH (09:11)
[2022-09-28] MEDS: POLYETHYLENE GLYCOL POWDER 17 GM PACK PEG SCH (09:11)
[2022-09-28] MEDS: lisinopriL 10 MG TABLET PEG SCH (09:12)
[2022-09-28] MEDS: POTASSIUM BICARB EFFERVESCENT 20 MEQ TAB.EFF PO SCH (09:12)
[2022-09-28] MEDS: levETIRAcetam LIQUID 100 MG/ML 30 ML/BOTTLE PEG SCH (09:32)
== END 2022-09-28 11:45 | DRG 193 ==
LOC: N.2E → SUATTDRO 20:37
PROVIDERS: ADMIT Internal Medicine; ATTEND Internal Medicine